=== PATIENT | female | born 1945 | race Caucasian/White ===

== ENCOUNTER 2019-07-23 17:32 | Inpatient (IN) | payer BC ==
[~2019-07-23] VITALS: Ht 167.6 cm; Wt 74.9 kg
[~2019-07-23 17:32] MED LIST: AMIT50TA3 OR; LEVO88TA4 OR; QUIN20TA33 OR; SIMV-8 OR; TRAM-297 OR; [UNRECOGNIZED DRUG - OTHER]
[2019-07-23] MEDS ORDERED: SODIUM CHLORIDE 0.9% 500 ML IVB ONE (17:51)
[2019-07-23 18:42] LABS: Urine Bacteria FEW /hpf (None Seen); Urine Blood TRACE /uL (Negative); Urine Specific Gravity 1.008 (1.001-1.035); Urine WBC 376 /hpf (0 - 5); Urine WBC Clumps PRESENT /hpf (None Seen)
[2019-07-23] MEDS ORDERED: LEVOFLOXACIN 500MG 100 ML IV ONE (18:45)
[2019-07-23] MEDS: SODIUM CHLORIDE 0.9% 1,000 ML IV SCH (19:29)
[2019-07-23] MEDS ORDERED: DEXTROSE (50%) 50ML SYRG IV PRN (19:30)
[2019-07-23] MEDS ORDERED: cefTRIAXone 1GM/50ML D5W 50 ML IV ONE (19:30)
[2019-07-23] MEDS ORDERED: PROMETHAZINE HCL 25 MG/ML 1ML IV PRN (19:30)
[2019-07-23] MEDS ORDERED: CYCLOBENZAPRINE HCL 10 MG TAB PO PRN (19:30)
[2019-07-23] MEDS ORDERED: NITROGLYCERIN 0.4 MG SL TAB SL PRN (19:30)
[2019-07-23] MEDS ORDERED: MORPHINE SULF INJ 2 MG/ML SYRINGE 1ML IV PRN (19:30)
[2019-07-23] MEDS ORDERED: ACETAMINOPHEN 500 MG TAB PO PRN (19:30)
[2019-07-23 19:31] LABS: Basophils # (auto) 0 uL; Basophils % (auto) 0.3 % (0.0-2.0); Eosinophils # (auto) 0.2 uL; Eosinophils % (auto) 1.9 % (0.0-7.0); Hematocrit 29.5 % (36.0-46.0); Hemoglobin 9.7 g/dL (12.2-16.2); Lymphocytes # (auto) 1.4 uL; Lymphocytes % (auto) 14.8 % (10.0-50.0); Mean Corpuscular Hemoglobin 30.1 pg (28.0-32.0); Monocytes # (auto) 0.5 uL; Monocytes % (auto) 5.5 % (0.0-12.0); Neutrophils # (auto) 7.1 uL; Neutrophils % (auto) 77.5 % (37.0-80.0); Platelet Count (auto) 451 10^3/uL (140-450); Red Blood Cells 3.24 10^6/uL (4.0-5.20); Red Cell Distribution Width 14.9 % (11.8-14.3); White Blood Cell 9.2 10^3/uL (4.4-10.8)
[2019-07-23 19:55] LABS: Albumin 2.2 g/dL (3.4-5.0); Anion Gap 8 (5-15); Blood Urea Nitrogen 15 mg/dL (7-18); Calcium 8.6 mg/dL (8.5-10.1); Carbon Dioxide 28 mmol/L (21-32); Chloride 99 mmol/L (98-107); Glucose 83 mg/dL (74-106); Potassium 3.5 mmol/L (3.5-5.1); Sodium 135 mmol/L (136-145)
[2019-07-23 20:01] LABS: Alanine Aminotransferase 8 U/L (13-56); Alkaline Phosphatase 123 U/L (45-117); Aspartate Aminotransferase 12 U/L (15-37); BUN/Creatinine Ratio 27.3; Bilirubin, Total 0.2 mg/dL (0.2-1.0); GFR African American 140 mL/min; GFR Non-African American 116 mL/min; Total Protein 6.1 g/dL (6.4-8.2)
[2019-07-23] MEDS: ENOXAPARIN SOD 40 MG/0.4 ML SYRINGE SC SCH (20:08)
[2019-07-23] MEDS: ACCU-CHEK COMFORT CURVE STRIP VI SCH (20:09)
[2019-07-23 21:47] VITALS: BP 111/64
[2019-07-23] MEDS: GABAPENTIN 300 MG CAP PO SCH (22:08)
[2019-07-23] MEDS: traMADol HCL 50 MG TAB PO PRN (22:09)
[2019-07-24] MEDS: ACCU-CHEK COMFORT CURVE STRIP VI SCH ×6 (00:09→20:18)
[2019-07-24 04:49] VITALS: BP 130/39
[2019-07-24] MEDS: SODIUM CHLORIDE 0.9% 1,000 ML IV SCH ×2 (05:29→15:52)
[2019-07-24] MEDS: traMADol HCL 50 MG TAB PO PRN (06:07)
[2019-07-24] MEDS: GABAPENTIN 300 MG CAP PO SCH ×3 (06:07→22:04)
[2019-07-24] MEDS: LEVOTHYROXINE SODIUM 88 MCG TAB PO SCH (06:57)
[2019-07-24 09:00] VITALS: BP 110/66
[2019-07-24] MEDS: cefTRIAXone 1GM/50ML D5W 50 ML IV SCH (09:20)
[2019-07-24] MEDS ORDERED: HYDROCHLOROTHIAZIDE PO SCH (10:00)
[2019-07-24] MEDS ORDERED: QUINAPRIL PO SCH (10:00)
[2019-07-24 12:37] VITALS: BP 142/66
[2019-07-24] MEDS ORDERED: CRAN600T OR (12:54)
[2019-07-24] MEDS ORDERED: ASCO100076 PO (12:54)
[2019-07-24] MEDS ORDERED: METF500S PO (12:54)
[2019-07-24] MEDS ORDERED: CYCL1TAB18 PO (12:54)
[2019-07-24] MEDS ORDERED: PANT40TA2 PO (12:54)
[2019-07-24] MEDS ORDERED: OMEG1CAP59 PO (12:54)
[2019-07-24] MEDS ORDERED: ZINC220C8 PO (12:54)
[2019-07-24] MEDS ORDERED: [UNRECOGNIZED DRUG - CODE] PO (12:54)
[2019-07-24] MEDS ORDERED: CYAN1TAB14 PO (12:54)
[2019-07-24] MEDS ORDERED: CHOL20007 OR (12:54)
[2019-07-24] MEDS ORDERED: MAGN400C3 PO (12:54)
[2019-07-24] MEDS ORDERED: PERCOT PO (12:54)
[2019-07-24] MEDS ORDERED: OXYCODONE W/ ACETAMINOPHEN 5/325MG TABLET PO PRN (14:30)
[2019-07-24] MEDS: OXYCODONE W/ ACETAMINOPHEN 5/325MG TABLET PO PRN (16:21)
[2019-07-24 17:11] VITALS: BP 120/67
[2019-07-24] MEDS: QUINAPRIL PO SCH (17:25)
[2019-07-24] MEDS: HYDROCHLOROTHIAZIDE 12.5 MG PO SCH (17:25)
[2019-07-24] MEDS: ENOXAPARIN SOD 40 MG/0.4 ML SYRINGE SC SCH (18:23)
[2019-07-24 22:00] VITALS: BP 136/69
[2019-07-24] MEDS: PRAVASTATIN SODIUM 20 MG TAB PO SCH (22:04)
[2019-07-25] MEDS: ACCU-CHEK COMFORT CURVE STRIP VI SCH ×6 (00:08→20:55)
[2019-07-25 05:00] VITALS: BP 147/70
[2019-07-25] MEDS: GABAPENTIN 300 MG CAP PO SCH ×3 (06:16→21:48)
[2019-07-25] MEDS: SODIUM CHLORIDE 0.9% 1,000 ML IV SCH ×3 (06:16→22:11)
[2019-07-25] MEDS: LEVOTHYROXINE SODIUM 88 MCG TAB PO SCH (06:46)
[2019-07-25 09:00] VITALS: BP 116/67
[2019-07-25] MEDS: cefTRIAXone 1GM/50ML D5W 50 ML IV SCH (09:08)
[2019-07-25] MEDS: OXYCODONE W/ ACETAMINOPHEN 5/325MG TABLET PO PRN (11:42)
[2019-07-25 13:21] VITALS: BP 132/85
[2019-07-25 16:53] VITALS: BP 151/62
[2019-07-25] MEDS: QUINAPRIL PO SCH (17:14)
[2019-07-25] MEDS: HYDROCHLOROTHIAZIDE 12.5 MG PO SCH (17:14)
[2019-07-25] MEDS: ENOXAPARIN SOD 40 MG/0.4 ML SYRINGE SC SCH (17:15)
[2019-07-25] MEDS: PRAVASTATIN SODIUM 20 MG TAB PO SCH (21:49)
[2019-07-25 22:00] VITALS: BP 154/75
[2019-07-26] MEDS: OXYCODONE W/ ACETAMINOPHEN 5/325MG TABLET PO PRN (00:22)
[2019-07-26] MEDS: ACCU-CHEK COMFORT CURVE STRIP VI SCH ×4 (00:31→13:04)
[2019-07-26 05:00] VITALS: BP 124/75
[2019-07-26] MEDS: LEVOTHYROXINE SODIUM 88 MCG TAB PO SCH (06:03)
[2019-07-26] MEDS: GABAPENTIN 300 MG CAP PO SCH ×2 (06:03→14:21)
[2019-07-26] MEDS: SODIUM CHLORIDE 0.9% 1,000 ML IV SCH (06:54)
[2019-07-26] MEDS: cefTRIAXone 1GM/50ML D5W 50 ML IV SCH (08:33)
[2019-07-26 09:24] VITALS: BP 175/76
[2019-07-26] MEDS ORDERED: LINEZOLID 600MG TABLET PO ONE (11:30)
[2019-07-26] MEDS ORDERED: LEVOFLOXACIN 500 MG TAB PO ONE (11:30)
[2019-07-26 12:37] VITALS: BP 145/86
[2019-07-26] MEDS ORDERED: LINEZOLID 600MG TABLET PO SCH (22:00)
[2019-07-27] MEDS ORDERED: LEVOFLOXACIN 500 MG TAB PO SCH (10:00)
== END 2019-07-26 15:42 | disposition home health service (06) | DRG 871 ==
LOC: EDBD 17:32 → ER 17:35 → TELE 17:36 → TELE-WESTW 21:28
PROVIDERS: ADMIT Internal Medicine; ATTEND Family Medicine
DX: A41.9 Sepsis, unspecified organism (principal); L89.154 Pressure ulcer of sacral region, stage 4; G93.41 Metabolic encephalopathy; N39.0 Urinary tract infection, site not specified; Z16.21 Resistance to vancomycin; E11.649 Type 2 diabetes mellitus with hypoglycemia without coma; I10 Essential (primary) hypertension; B96.1 Klebsiella pneumoniae [K. pneumoniae] as the cause of diseases classified elsewhere; E86.0 Dehydration; L89.150 Pressure ulcer of sacral region, unstageable; K59.00 Constipation, unspecified; T68.XXXA Hypothermia, initial encounter; Z86.19 Personal history of other infectious and parasitic diseases; Z87.891 Personal history of nicotine dependence; Z90.49 Acquired absence of other specified parts of digestive tract; B95.2 Enterococcus as the cause of diseases classified elsewhere
CPT/HCPCS: 36415; 70450; 71045; 80053; 81001; 82570; 82962; 83036; 83605; 84484; 85025; 87040; 87077; 87081; 87086; 87088; 87186; 87205; 97163; 99291; G0378; J0696; J1956

== ENCOUNTER 2020-10-24 14:19 | Emergency (ER) | payer BC ==
[~2020-10-24] VITALS: Ht 167.6 cm; Wt 81.6 kg
[~2020-10-24 14:19] MED LIST changes: +ASCO100076 PO; +CHOL20007 OR; +CRAN600T OR; +CYAN1TAB14 PO; +CYCL10TA6 PO; +MAGN400C3 PO; +METF500S PO; +OMEG1CAP59 PO; +PANT40TA2 PO; +PERCOT PO; +ZINC220C8 PO; +[UNRECOGNIZED DRUG - CODE] PO
[2020-10-24 14:23] VITALS: BP 136/64
[2020-10-24] MEDS ORDERED: SODIUM CHLORIDE 0.9% 1,000 ML IV ONE ×2 (14:45)
[2020-10-24 15:02] LABS: Basophils # (auto) 0 10 ^3/uL (0-0.2); Basophils % (auto) 0.6 % (0.0-2.0); Eosinophils # (auto) 0.2 10 ^3/uL (0-0.8); Eosinophils % (auto) 3.2 % (0.0-7.0); Hematocrit 32.8 % (36.0-46.0); Hemoglobin 10.9 g/dL (12.2-16.2); Lymphocytes # (auto) 2.2 10 ^3/uL (0.4-5.4); Mean Corpuscular Hemoglobin 28.8 pg (28.0-32.0); Mean Corpuscular Hgb Conc. 33.3 g/dL (32.0-36.0); Mean Corpuscular Volume 86.6 fL (80.0-100.0); Monocytes # (auto) 0.5 10 ^3/uL (0-1.3); Monocytes % (auto) 6.7 % (0.0-12.0); Neutrophils # (auto) 4.6 10 ^3/uL (1.6-8.6); Neutrophils % (auto) 60.5 % (37.0-80.0); Platelet Count (auto) 376 10^3/uL (140-450); Red Blood Cells 3.78 10^6/uL (4.0-5.20); Red Cell Distribution Width 14.2 % (11.8-14.3); White Blood Cell 7.6 10^3/uL (4.4-10.8)
[2020-10-24 15:16] LABS: Albumin 3.2 g/dL (3.4-5.0); Anion Gap 7 (5-15); Blood Urea Nitrogen 16 mg/dL (7-18); Carbon Dioxide 25 mmol/L (21-32); Chloride 99 mmol/L (98-107); Glucose 88 mg/dL (74-106); Potassium 4.3 mmol/L (3.5-5.1); Sodium 131 mmol/L (136-145)
[2020-10-24 15:21] LABS: Alanine Aminotransferase 16 U/L (13-56); Alkaline Phosphatase 85 U/L (45-117); Aspartate Aminotransferase 15 U/L (15-37); BUN/Creatinine Ratio 21.6; Bilirubin, Total 0.2 mg/dL (0.2-1.0); GFR African American 99 mL/min; GFR Non-African American 82 mL/min; Total Protein 7.3 g/dL (6.4-8.2)
== END 2020-10-24 17:53 | disposition left against medical advice (07) ==
LOC: ER 14:19
DX: A41.89 Other specified sepsis (principal); N39.0 Urinary tract infection, site not specified; I10 Essential (primary) hypertension; E11.9 Type 2 diabetes mellitus without complications; Z90.89 Acquired absence of other organs; Z79.899 Other long term (current) drug therapy
CPT/HCPCS: 36415; 71045; 80053; 84484; 85025; 87040

== ENCOUNTER 2024-02-19 11:58 | Inpatient (IN) | payer BC, OTHER ==
[~2024-02-19] VITALS: Ht 167.6 cm; Wt 73.0 kg
[~2024-02-19 11:58] MED LIST changes: +AMIT50TA12 OR; -AMIT50TA3 OR; +CYCL-839 PO; -CYCL10TA6 PO; -METF500S PO; +METF500S3 PO; +QUIN1TAB OR; -QUIN20TA33 OR; -SIMV-8 OR; +SIMV20TA20 OR
[2024-02-19 14:04] LABS: Mean Corpuscular Volume 78.9 fL (80.0-100.0); Monocytes # (auto) 0.6 10 ^3/uL (0-1.3)
[2024-02-19 14:06] LABS: Basophils # (auto) 0.1 10 ^3/uL (0-0.2); Basophils % (auto) 0.7 % (0.0-2.0); Eosinophils # (auto) 0.3 10 ^3/uL (0-0.8); Eosinophils % (auto) 3.6 % (0.0-7.0); Hematocrit 31.9 % (36.0-46.0); Hemoglobin 10.6 g/dL (12.2-16.2); Lymphocytes % (auto) 13.3 % (10.0-50.0); Mean Corpuscular Hemoglobin 26.3 pg (28.0-32.0); Mean Corpuscular Hgb Conc. 33.3 g/dL (32.0-36.0); Monocytes % (auto) 8.6 % (0.0-12.0); Neutrophils # (auto) 5.5 10 ^3/uL (1.6-8.6); Neutrophils % (auto) 73.8 % (37.0-80.0); Platelet Count (auto) 360 10^3/uL (140-450); Red Blood Cells 4.05 10^6/uL (4.0-5.20); White Blood Cell 7.5 10^3/uL (4.4-10.8)
[2024-02-19 14:12] VITALS: PULSE 61; RESP 10; O2SAT 99
[2024-02-19 14:16] LABS: Anion Gap 4 (5-15); Carbon Dioxide 32 mmol/L (20-30); Chloride 100 mmol/L (98-107); Potassium 4.9 mmol/L (3.5-5.1); Sodium 136 mmol/L (136-145)
[2024-02-19 14:18] LABS: Calcium 10.1 mg/dL (8.7-10.4)
[2024-02-19 14:22] LABS: Glucose 117 mg/dL (74-106)
[2024-02-19 14:23] LABS: BUN/Creatinine Ratio 26.6 (10.0-20.0); Blood Urea Nitrogen 17 mg/dL (9-23)
[2024-02-19] MEDS: ONDANSETRON HCL 4 MG/2 ML VIAL IV ONE (17:19)
[2024-02-19] MEDS: MORPHINE SULFATE INJ 2 MG/ml SYRG IV ONE (17:23)
[2024-02-19 18:19] LABS: Urine Bacteria None Seen /hpf (None Seen)
[2024-02-19 18:45] LABS: Urine Blood Negative /uL (Negative); Urine Clarity Clear (Clear); Urine Color Yellow (Yellow); Urine Protein, UAD TRACE (Negative); Urine Specific Gravity 1.019 (1.001-1.035); Urine Urobilinogen Normal (Negative); Urine WBC 2 /hpf (0 - 5); Urine pH 7.5 (5.0-9.0)
[2024-02-19] MEDS: OXYCODONE W/ ACETAMINOPHEN 5/325MG TABLET PO ONE (19:06)
[2024-02-19] MEDS: PIPERACILLIN-TAZO 4.5GM 100 ML IV ONE (19:07)
[2024-02-19 19:50] VITALS: PULSE 62; RESP 12; O2SAT 88
[2024-02-19] MEDS: diphenhdrAMINE HCL 50 MG/1 ML VL IV ONE (20:02)
[2024-02-19] MEDS: methylPREDNISolone SOD SUCC 125 MG/2 ML VL IV ONE (20:02)
[2024-02-19] MEDS: VANCOMYCIN 1GM/200ML 200 ML IV ONE (20:03)
[2024-02-19] MEDS ORDERED: VANCOMYCIN PER PHARMACY 0 MG IV SCH (21:15)
[2024-02-19] MEDS ORDERED: ONDANSETRON HCL 4 MG/2 ML VIAL IV PRN (21:15)
[2024-02-19] MEDS ORDERED: ACETAMINOPHEN 325 MG TAB PO PRN (21:15)
[2024-02-19] MEDS: MORPHINE SULFATE INJ 2 MG/ml SYRG IV PRN (22:39)
[2024-02-20] VITALS (7 sets, daily range): BP systolic 111–136; BP diastolic 40–58; PULSE 57–75; RESP 16–18; TEMP 97.4–98.5; O2SAT 95–99
[2024-02-20] MEDS ORDERED: DEXTROSE (50%) 50ML SYRG IV PRN (02:00)
[2024-02-20] MEDS: PIPERACILLIN-TAZOB 3.375GM 100 ML IV SCH (05:16)
[2024-02-20 06:10] LABS: Basophils # (auto) 0 10 ^3/uL (0-0.2); Basophils % (auto) 0.2 % (0.0-2.0); Eosinophils # (auto) 0 10 ^3/uL (0-0.8); Eosinophils % (auto) 0.1 % (0.0-7.0); Monocytes # (auto) 0 10 ^3/uL (0-1.3); Neutrophils # (auto) 5.2 10 ^3/uL (1.6-8.6); White Blood Cell 5.7 10^3/uL (4.4-10.8)
[2024-02-20 06:17] LABS: Hematocrit 30.3 % (36.0-46.0); Hemoglobin 10.1 g/dL (12.2-16.2); Lymphocytes # (auto) 0.4 10 ^3/uL (0.4-5.4); Lymphocytes % (auto) 7.5 % (10.0-50.0); Mean Corpuscular Hemoglobin 26.6 pg (28.0-32.0); Mean Corpuscular Hgb Conc. 33.5 g/dL (32.0-36.0); Mean Corpuscular Volume 79.5 fL (80.0-100.0); Monocytes % (auto) 0.8 % (0.0-12.0); Neutrophils % (auto) 91.4 % (37.0-80.0); Nucleated Red Blood Cells % 0.1 %; Platelet Count (auto) 294 10^3/uL (140-450); Red Blood Cells 3.81 10^6/uL (4.0-5.20)
[2024-02-20] MEDS: InsuLIN REG 1unit/0.01ml Soln (100units/ml) SC SCH (06:27)
[2024-02-20] MEDS: ACCU-CHEK COMFORT CURVE STRIP VI SCH (07:23)
[2024-02-20] MEDS: PANTOPRAZOLE 40 MG/10 ML VIAL INJ IV SCH (08:36)
[2024-02-20] MEDS: ENOXAPARIN SOD 40 MG/0.4 ML SYRINGE SC SCH (08:37)
[2024-02-20] MEDS: VANCOMYCIN 1GM/200ML 200 ML IV SCH (08:37)
[2024-02-20 12:21] LABS: Chloride 102 mmol/L (98-107); Potassium 4.6 mmol/L (3.5-5.1); Sodium 135 mmol/L (136-145)
[2024-02-20 12:22] LABS: Anion Gap 5 (5-15); Carbon Dioxide 28 mmol/L (20-30)
[2024-02-20 12:23] LABS: Calcium 9.3 mg/dL (8.7-10.4)
[2024-02-20 12:27] LABS: BUN/Creatinine Ratio 21.5 (10.0-20.0); Blood Urea Nitrogen 20 mg/dL (9-23); Glucose 277 mg/dL (74-106)
[2024-02-20] MEDS ORDERED: fentaNYL CITRATE 100 MCG/2 ML VL ONE (12:32)
[2024-02-20] MEDS ORDERED: PROPOFOL 10 MG/ML 20 ML IV ONE (12:35)
[2024-02-20] MEDS: LIDOCAINE W/ EPINEPHRINE 1% 20ML VIAL ONE (13:15)
[2024-02-20 14:38] LABS: INR 1.28 (0.9-1.15); Partial Thromboplastin Time 39.9 SEC (24.5-34.5); Prothrombin Time 13.3 sec (9.3-11.8)
[2024-02-21] VITALS (7 sets, daily range): BP systolic 107–156; BP diastolic 45–86; PULSE 63–81; RESP 16–20; TEMP 97.8–98.9; O2SAT 93–100
[2024-02-21] MEDS: HYDROcodone-ACET 5/325MG TAB PO PRN (17:24)
[2024-02-22] VITALS (7 sets, daily range): BP systolic 123–166; BP diastolic 61–110; PULSE 62–73; RESP 18–20; TEMP 97.1–98.6; O2SAT 93–100
[2024-02-22 06:26] LABS: Basophils # (auto) 0 10 ^3/uL (0-0.2); Eosinophils # (auto) 0.2 10 ^3/uL (0-0.8); Hemoglobin 9.7 g/dL (12.2-16.2); Monocytes # (auto) 0.5 10 ^3/uL (0-1.3); Neutrophils # (auto) 3.1 10 ^3/uL (1.6-8.6)
[2024-02-22 06:29] LABS: Eosinophils % (auto) 3.8 % (0.0-7.0); Hematocrit 29.1 % (36.0-46.0); Lymphocytes # (auto) 1.2 10 ^3/uL (0.4-5.4); Lymphocytes % (auto) 24.7 % (10.0-50.0); Mean Corpuscular Hemoglobin 26.5 pg (28.0-32.0); Mean Corpuscular Hgb Conc. 33.5 g/dL (32.0-36.0); Monocytes % (auto) 9.1 % (0.0-12.0); Neutrophils % (auto) 61.4 % (37.0-80.0); Nucleated Red Blood Cells % 0.1 %; Platelet Count (auto) 315 10^3/uL (140-450); Red Blood Cells 3.68 10^6/uL (4.0-5.20); Red Cell Distribution Width 17.3 % (11.8-14.3)
[2024-02-22 06:54] LABS: Calcium 9.5 mg/dL (8.7-10.4); Chloride 107 mmol/L (98-107); Potassium 4.7 mmol/L (3.5-5.1); Sodium 143 mmol/L (136-145)
[2024-02-22 06:55] LABS: Anion Gap 11 (5-15); Carbon Dioxide 25 mmol/L (20-30)
[2024-02-22 07:00] LABS: Blood Urea Nitrogen 17 mg/dL (9-23); Glucose 113 mg/dL (74-106)
[2024-02-22] MEDS: VANCOMYCIN 1GM/200ML 200 ML IV SCH (17:00)
[2024-02-23] VITALS (7 sets, daily range): BP systolic 112–171; BP diastolic 54–73; PULSE 58–84; RESP 16–22; TEMP 98–98.3; O2SAT 90–100
[2024-02-23] MEDS ORDERED: VANCOMYCIN HCL 1000 MG VL ONE (07:04)
[2024-02-24] VITALS (7 sets, daily range): BP systolic 144–164; BP diastolic 60–85; PULSE 61–69; RESP 16–18; TEMP 98.1–98.5; O2SAT 93–99
[2024-02-24 07:26] LABS: Chloride 107 mmol/L (98-107); Potassium 3.3 mmol/L (3.5-5.1); Sodium 140 mmol/L (136-145)
[2024-02-24 07:27] LABS: Anion Gap 5 (5-15); Carbon Dioxide 28 mmol/L (20-30)
[2024-02-24 07:32] LABS: BUN/Creatinine Ratio 31.6 (10.0-20.0); Blood Urea Nitrogen 18 mg/dL (9-23); Glucose 131 mg/dL (74-106)
[2024-02-24 11:09] LABS: INR 1.24 (0.9-1.15); Prothrombin Time 12.9 sec (9.3-11.8)
[2024-02-24] MEDS ORDERED: LIDOCAINE 1% (LOCAL ANESTH.) PF 5ml SDV ID ONE (14:30)
[2024-02-24] MEDS: hydrALAZINE HCL 20 MG/ML VL IV ONE (16:20)
[2024-02-24] MEDS ORDERED: SODIUM CHLOR 0.9% PF (SALINE LOCK) 10ML VIAL/SYR IV SCH (22:00)
== END 2024-02-24 17:10 | disposition home health service (06) | DRG 622 ==
LOC: ER 11:58 → OVERFLOW 21:22 → CENTRAL 21:22 → UNDODEPER 02-20 00:28 → CENTRAL 02-23 12:30
PROVIDERS: ADMIT Nurse Practitioner Family; ATTEND Nurse Practitioner Family
PROC: 0KBN0ZZ Excision of Right Hip Muscle, Open Approach (ICD-10-PCS; 2024-02-20)
PROC: 0KBP0ZZ Excision of Left Hip Muscle, Open Approach (ICD-10-PCS; principal; 2024-02-20 12:52)
PROC: 02HV33Z Insertion of Infusion Device into Superior Vena Cava, Percutaneous Approach (ICD-10-PCS; 2024-02-24)
PROC: B548ZZA Ultrasonography of Superior Vena Cava, Guidance (ICD-10-PCS; 2024-02-24)
DX: E11.69 Type 2 diabetes mellitus with other specified complication (principal); L89.154 Pressure ulcer of sacral region, stage 4; G82.20 Paraplegia, unspecified; N39.0 Urinary tract infection, site not specified; M86.18 Other acute osteomyelitis, other site; I10 Essential (primary) hypertension; J44.9 Chronic obstructive pulmonary disease, unspecified; X58.XXXA Exposure to other specified factors, initial encounter; E03.9 Hypothyroidism, unspecified; E78.5 Hyperlipidemia, unspecified; Z74.01 Bed confinement status; Z79.899 Other long term (current) drug therapy; Z79.891 Long term (current) use of opiate analgesic; Z82.49 Family history of ischemic heart disease and other diseases of the circulatory system; Z83.3 Family history of diabetes mellitus; Y93.89 Activity, other specified; Y92.89 Other specified places as the place of occurrence of the external cause; Y99.8 Other external cause status; Z79.84 Long term (current) use of oral hypoglycemic drugs
CPT/HCPCS: 36415; 36569; 72192; 80048; 80202; 81001; 82565; 82962; 83036; 83605; 83880; 84484; 85025; 85610; 85730; 86850; 86900; 86901; 87040; 87077; 87086; 87186; 87205; G0378; J1815; J2405; J2470; J2543; J2704

== ENCOUNTER 2024-10-17 17:28 | Inpatient (IN) | payer OTHER ==
[~2024-10-17] VITALS: Ht 167.6 cm; Wt 73.0 kg
[2024-10-17 18:00] VITALS: PULSE 75; RESP 12; O2SAT 100
[2024-10-17 18:00] LABS: Basophils # (auto) 0 10 ^3/uL (0-0.2); Eosinophils # (auto) 0 10 ^3/uL (0-0.8); Hemoglobin 9.4 g/dL (12.2-16.2); Lymphocytes # (auto) 0.5 10 ^3/uL (0.4-5.4); Lymphocytes % (auto) 3.8 % (10.0-50.0); Monocytes # (auto) 0.5 10 ^3/uL (0-1.3); Neutrophils % (auto) 92.1 % (37.0-80.0)
[2024-10-17] MEDS: SODIUM CHLORIDE 0.9% 1,000 ML IV ONE ×3 (18:00→21:45)
[2024-10-17] MEDS ORDERED: VANCOMYCIN PER PHARMACY 0 MG IV SCH ×2 (18:00→21:45)
[2024-10-17 18:03] LABS: Basophils % (auto) 0.2 % (0.0-2.0); Hematocrit 29.4 % (36.0-46.0); Mean Corpuscular Hemoglobin 26.1 pg (28.0-32.0); Mean Corpuscular Hgb Conc. 32.1 g/dL (32.0-36.0); Mean Corpuscular Volume 81.4 fL (80.0-100.0); Monocytes % (auto) 3.9 % (0.0-12.0); Neutrophils # (auto) 11.2 10 ^3/uL (1.6-8.6); Platelet Count (auto) 164 10^3/uL (140-450); Red Blood Cells 3.62 10^6/uL (4.0-5.20); Red Cell Distribution Width 17.6 % (11.8-14.3); White Blood Cell 12.2 10^3/uL (4.4-10.8)
[2024-10-17 18:14] LABS: Anion Gap 10 (5-15); BUN/Creatinine Ratio 34.3 (10.0-20.0); Calcium 8.8 mg/dL (8.7-10.4); Carbon Dioxide 23 mmol/L (20-31); Chloride 105 mmol/L (98-107); Potassium 3.7 mmol/L (3.5-5.1); Sodium 138 mmol/L (136-145)
[2024-10-17 18:15] LABS: Bilirubin, Total 0.3 mg/dL (0.2-1.0)
[2024-10-17] MEDS: PIPERACILLIN-TAZO 4.5GM 100 ML IV ONE (18:15)
[2024-10-17 18:37] LABS: Alanine Aminotransferase 57 U/L (7-40); Albumin 2.9 g/dL (3.2-4.8); Alkaline Phosphatase 162 U/L (46-116); Aspartate Aminotransferase 102 U/L (13-40); Blood Urea Nitrogen 34 mg/dL (9-23); Glucose 180 mg/dL (74-106); Total Protein 5.2 g/dL (5.7-8.2)
--- NOTE | 2024-10-17 19:18 | ED.PDOC ---
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 Per EMS, patient's b lood pressure was in the 70s systolic. They administered a 500 normal saline IV bolus transient improvement of her blood pressure, however the patient subsequently became more hypotensive, so 0.01 mg of epinephrine was administered IV. On arrival to the ER, patient's blood pressure was 82/40. The patient was oriented times 0 and unable to provide any additional information. Chief Complaint: ALOC Time Seen by MD: 17:29 Primary Care Provider: Ry Allergies: Coded Allergies: Gentamicin (Verified Adverse Reaction, Mild, 02/24/24) hearing Home Meds Reported Medications Oxycodone W/ Acetaminophen (Percocet 5/325MG) 1 Tab Tb, 1 TAB PO Q4HPRN PRN for PAIN SCALE 1 THRU 6, #60 TAB 07/24/19 Zinc Sulfate (Zinc Sulfate) 220 Mg Cap, 50 MG PO DAILY for 30 Days, MG 07/24/19 Ascorbic Acid (Vitamin C) 1,000 Mg Tab, 1000 MG PO, TAB 20 Cyanocobalamin (B12) 1,000 Mcg Tab, 500 MCG PO DAILY, TAB 20 Cranberry Extract (CRANBERRY) 600 Mg Tab, 600 MG OR DAILY, TAB 20 Cholecalciferol (VITAMIN D3) 2,000 Unit Tab, 1000 UNIT OR, TAB 20 [place]-3 Fatty Acids ([place] 3 500 500 mg) 1 Cap Cap, 2 CAP PO DAILY, CAP 20 Biotin (Vitamin H) (Biotin Maximum) 10,000 Mcg Tab, 65155 MCG PO DAILY, TAB 20 Magnesium Oxide (Mg Supplement (MAGNESIUM) 400 Mg Cap, 400 MG PO, CAP 20 Pantoprazole Sodium Sesquihydr (Protonix) 40 Mg Tab, 40 MG PO DAILY, #30 TAB 07/24/19 Cyclobenzaprine Hcl (Cyclobenzaprine Hcl) 10 Mg Tab, 10 MG PO TID, TAB 07/24/19 Metformin HCl (Metformin Hydrochloride) 500 Mg/5 Ml Nilda, 500 MG PO BID, ML 07/24/19 Tramadol Hcl (Ultram) 50 Mg Tab, 50 MG OR Q6HR 02/19/10 Simvastatin (Simvastatin) 20 Mg Tab, 20 MG OR DAILY 02/19/10 Amitriptyline Hcl (Amitriptyline Hcl) 50 Mg Tab, 50 MG OR HS 02/19/10 Levothyroxine Sodium (Levothyroxine Sodium) 88 Mcg Tab, 88 MCG OR DAILY 02/19/10 Quinapril-Hydrochlorothiazide (Quinapril/Hydrochlorothia) 1 Tab Tab, 2 TAB OR DAILY 02/19/10 [Aleye] No Conflict Check 02/18/10 Mode of Arrival: EMS Past Medical History PAST MEDICAL HISTORY: DM, HTN Past Medical History (Other): Paralyzed from the waist down, bed-bound Surgical History: Tonsillectomy Surgical History (Other): Suprapubic catheter 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: Unknown Family History Family History: Unobtainable Social History Smoker: Unknown Alcohol: Unknown Drugs: Unknown Lives In: Home Unable to Obtain due to: Altered Mental Status (Comprehensive systems review unobtainable due to the patient's current altered mental status) Physical Exam General Appearance: No Apparent Distress, Other (Somnolent, arousable to tactile stimulus) HEENT: PERRL/EOMI, Other (Dry mucous membranes) Neck: Full Range of Motion, Non-Tender, Normal Inspection, Supple Respiratory: Decreased Breath Sounds, No Accessory Muscle Use, No Respiratory Distress Cardiovascular: No Edema, No JVD, Regular Rate/Rhythm Breast Exam: Deferred Gastrointestinal: Non Tender, Soft, Other (Suprapubic catheter in place with cloudy urine in the catheter and collection bag) Genitalia: Deferred Pelvic: Deferred Rectal: Deferred Extremities: Normal inspection, Normal range of motion, Non-tender, No pedal edema Neurologic: Other (Somnolent, arousable to tactile stimulus, oriented times 0. Does not cooperate with neuro exam. Moves bilateral upper extremities. Does not move bilateral lower extremities.) Cerebellar Function: NOT DONE Reflexes: NOT DONE Skin: Dry, Pallor, Warm Lymphatic: NOT DONE Was a procedure done? 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 of heat seal operator: Attending Physician Indication: Hypotension, CVP monitoring, Volume resuscitation, Suspected infection (Sepsis suspected) Room prepared for procedure: Yes Boiler Operators Supervisor performed hand hygien: Yes Maximal sterile barrier precau: Sterile gown, Sterlie gloves, Large sterlie drape Skin Preparation: Chlorhexidine gluconate Skin preparation completely dr: Yes Insertion site: Right, Internal jugular Central line catheter type: [id number] dialysis Number of lumens: 3 Central line exchanged over a: Yes Antiseptic ointment applied to: No Post Assessment: Chest X-Ray, Proper placement, No Pneumothorax Informed consent obtained: No (Procedure was emergent. Patient has altered mental status.) Risks/benefits/alt described: No EKG EKG : Comments Sinus rhythm, rate 76, normal intervals, normal axis, normal QRS, nonspecific T change Differential Dx Considerations may include: Sepsis, dehydration/hypovolemia, arrhythmia, IN, CVA, CHF, pneumonia, UTI, electrolyte imbalance, renal failure, among others X-Ray, Labs, Meds, VS Vital Signs Date Time Temp Pulse Resp B/P (MAP) Pulse Ox O2 Delivery O2 Flow Rate FiO2 10/17/24 20:00 72 10/17/24 19:00 73 12 104/47 (66) 100 10/17/24 18:30 74 12 92/42 (59) 100 10/17/24 18:02 75 10/17/24 18:00 75 12 100 Nasal Cannula* 2 28 10/17/24 17:56 75 12 84/40 (55) 100 10/17/24 17:37 98.9 78 20 92/55 (67) 96 98.9 10/17/24 17:33 76 Lab Test 10/17/24 20:33 10/17/24 20:05 10/17/24 20:04 10/17/24 19:29 Range/Units Urine Color Yellow Yellow Urine Clarity Ex.turbid Clear Urine pH 5.5 5.0-9.0 Urine Specific [place] 1.023 1.001-1.035 Urine Protein 1+ H Negative Urine Ketones Negative Negative Urine Blood 1+ H Negative /uL Urine Nitrite 2+ H Negative Urine Bilirubin Negative Negative Urine Urobilinogen Normal Negative mg/dL Urine Leukocyte Esterase 3+ Negative /uL Urine RBC 49 0 - 4 /hpf Urine WBC Clumps Present None Seen /hpf Urine Microscopic WBC 137 H 0-5 /HPF Urine Squamous Epithelial Cells None seen <5 /hpf Urine Amorphous Crystals Few None Seen /hpf Urine Bacteria Few H None Seen /hpf Urine Mucus Few None Seen Urine Glucose Normal Normal mg/dL POC Glucose 203 H 70-106 mg/dl Lactic Acid Level 3.6 *H 0.4-2.0 mmol/L Troponin I High Sensitivity 110 *H </=34 ng/L Test 10/17/24 17:41 Range/Units White Blood Count 12.2 H 4.4-10.8 10^3/uL Red Blood Count 3.62 L 4.0-5.20 10^6/uL Hemoglobin 9.4 L 12.2-16.2 g/dL Hematocrit 29.4 L 36.0-46.0 % Mean Corpuscular Volume 81.4 80.0-100.0 fL Mean Corpuscular Hemoglobin 26.1 L 28.0-32.0 pg Mean Corpuscular Hemoglobin Concent 32.1 32.0-36.0 g/dL Red Cell Distribution Width 17.6 H 11.8-14.3 % Platelet Count 164 140-450 10^3/uL Mean Platelet Volume 9.4 6.9-10.8 fL Neutrophils (%) (Auto) 92.1 H 37.0-80.0 % Lymphocytes (%) (Auto) 3.8 L 10.0-50.0 % Monocytes (%) (Auto) 3.9 0.0-12.0 % Eosinophils (%) (Auto) 0.0 0.0-7.0 % Basophils (%) (Auto) 0.2 0.0-2.0 % Neutrophils # (Auto) 11.2 H 1.6-8.6 10 ^3/uL Lymphocytes # (Auto) 0.5 0.4-5.4 10 ^3/uL Monocytes # (Auto) 0.5 0-1.3 10 ^3/uL Eosinophils # (Auto) 0 0-0.8 10 ^3/uL Basophils # (Auto) 0 0-0.2 10 ^3/uL Nucleated Red Blood Cells 0.0 % Sodium Level 138 136-145 mmol/L Potassium Level 3.7 3.5-5.1 mmol/L Chloride Level 105 98-107 mmol/L Carbon Dioxide Level 23 20-31 mmol/L Anion Gap 10 5-15 Blood Urea Nitrogen 34 H 9-23 mg/dL Creatinine 0.99 0.550-1.02 mg/dL Glomerular Filtration Rate Calc 59 >90 mL/min BUN/Creatinine Ratio 34.3 H 10.0-20.0 Serum Glucose 180 H 74-106 mg/dL Lactic Acid Level 4.0 *H 0.4-2.0 mmol/L Calcium Level 8.8 8.7-10.4 mg/dL Total Bilirubin 0.3 0.2-1.0 mg/dL Aspartate Amino Transferase (AST) 102 H 13-40 U/L Alanine Aminotransferase (ALT) 57 H 7-40 U/L Alkaline Phosphatase 162 H 46-116 U/L Troponin I High Sensitivity 92 *H </=34 ng/L B-Type Natriuretic Peptide 179.21 0-100 pg/mL Total Protein 5.2 L 5.7-8.2 g/dL Albumin 2.9 L 3.2-4.8 g/dL Plasma/Serum Blood Alcohol < 3.0 <10 mg/dL Current Medications Medications (Trade) Dose Ordered Sig/Daniel Route Start Time Stop Time Status Last Admin Sodium Chloride 1,000 ml @ 1,000 mls/hr Q1H ONCE IV 10/17/24 18:00 10/17/24 18:59 DC 10/17/24 18:00 Piperacillin Sod/ Tazobactam Sod 100 ml @ 100 mls/hr ONCE ONCE IV 10/17/24 18:00 10/17/24 18:59 DC 10/17/24 18:15 Vancomycin HCl 250 ml @ 200 mls/hr ONCE ONCE IV 10/17/24 18:15 10/17/24 19:29 DC 10/17/24 19:56 Aspirin 325 mg ONCE ONCE PO 10/17/24 19:15 10/17/24 19:51 DC 10/17/24 20:36 Sodium Chloride 1,000 ml @ 1,000 mls/hr Q1H ONCE IV 10/17/24 20:00 10/17/24 20:59 DC 10/17/24 20:00 PROCEDURE(s): HWOCT - HEAD WITHOUT CONTRAST REASON: aloc ORDER NUMBER(s): [id number], ACCESSION NUMBER(s): [id number] CT HEAD WITHOUT CONTRAST INDICATION: aloc COMPARISON: HEAD WITHOUT CONTRAST on DOS: 07/23/19 TECHNIQUE: CT of the head without intravenous contrast. RADIATION DOSE: CTDIvol: 54.4 mGy, DLP: 1803.84 mGy*cm FINDINGS: There is no evidence of intracranial hemorrhage, infarct, extra-axial collection, mass effect, midline shift, herniation or hydrocephalus. The ventricles, sulci and cisterns are normal. The oscar-white differentiation is normal. Visualized paranasal sinuses and mastoid air cells are clear. Soft tiss ues and osseous structures are unremarkable. IMPRESSION: No intracranial abnormality identified. EDURE(s): CXRP - CHEST PORTABLE REASON: hypotension ORDER NUMBER(s): [id number], ACCESSION NUMBER(s): [id number] CHEST RADIOGRAPH Indication: hypotension Technique: Single frontal view of the chest was obtained COMPARISON: CHEST PORTABLE on DOS: 10/24/20 FINDINGS: Lines and Tubes: Right IJ central venous catheter with its tip projecting over cavoatrial junction. Lungs: Clear. Pleura: No effusion. No pneumothorax. Cardiomediastinal contours: Unremarkable Bones: Thoracolumbar spinal instrumentation again noted. IMPRESSION: No abnormality demonstrated. X-Ray, Labs, Meds, VS Comment 78-year-old female with a history of hypertension, diabetes, dyslipidemia, thyroid disease and paralysis from the waist down with indwelling suprapubic catheter brought in by EMS from home for evaluation of hypotension and altered mental status for the past 3 days. Also noted is a deep decubitus ulcer on the patient's sacral area. Vitals Remarkable for initial BP 86 over 40 Exam remarkable for orientation times 0, moves bilateral upper extremities, bilateral lower extremity paralysis, unstageable sacral wound Rhythm strip independently interpreted by me: Sinus rhythm, rate 76, no ectopy. CT head IMPRESSION: No intracranial abnormality identified. Chest x-ray IMPRESSION: No abnormality demonstrated. CT pelvis result pending CBC remarkable for WBC 12.2, CMP remarkable for BUN 34, AST 102, ALT 57, alkaline phos 162, lactic for 0.0, troponin 92, BNP 179.21, UA pending Patient treated with the following in the ED: 2 L 0.9 normal saline IV bolus, Zosyn 4.5 g IV, vancomycin IV per pharmacy, aspirin 325mg po A right internal jugular central venous catheter was inserted for volume resuscitation, IV antibiotics and pressors as needed Please see procedure note for details On re-evaluation, patient's blood pressure is 102/47. She is more alert and asking for something to eat. She denies any chest pain. Other vitals were stable. Plan is to admit the patient for IV antibiotics, blood pressure support, and cardiology evaluation Case discussed with MENDY Javier, who will admit the patient. Time of 1ST Reevaluation: 19:16 Reevaluation 1ST: Improved Patient Education/Counseling: Diagnosis, Treatment, Need For Follow Up Family Education/Counseling: Diagnosis, Treatment, Need For Follow Up Sepsis Sepsis Reasesment Focused Exam Sepsis focused exam: focus exam completed (1710 blood pressure 92/55, other vitals stable. Somnolent, arousable, capillary refill less than 2 seconds), time: (1710) Departure 1 Departure Time of Disposition: 19:16 Impression: Primary Impression: Metabolic encephalopathy Additional Impressions: Sepsis Qualified Codes: A41.9 - Sepsis, unspecified organism UTI (urinary tract infection) Non-ST elevation (NSTEMI) myocardial infarction Disposition: ADMITTED INPATIENT Admit to: [facility] Condition: Guarded Critical Care Note Critical Care Time?: Yes (45 min-critical care time only) Critical care comment: Critical care time including multiple bedside re-evaluations, review of lab and imaging studies, and discussion of the case with the admitting provider. Patient is high risk for neurologic, hemodynamic and/or metabolic decompensation. Stability Stability form required: No Heart Score Heart Score: Heart Score Response (Comments) Value History N/A 0 EKG N/A 0 Age N/A 0 Risk Factors N/A 0 Troponin N/A 0 Total 0 CH[place] GRANGER MD October 17, 2024 19:18
[2024-10-17 19:30] VITALS: RESP 13; O2SAT 100
[2024-10-17] MEDS: VANCOMYCIN 1.25GM/250ML 250 ML IV ONE (19:56)
--- NOTE | 2024-10-17 20:00 | DVH ---
CHEST RADIOGRAPH Indication: hypotension Technique: Single frontal view of the chest was obtained COMPARISON: CHEST PORTABLE on DOS: 10/24/20 FINDINGS: Lines and Tubes: Right IJ central venous catheter with its tip projecting over cavoatrial junction. Lungs: Clear. Pleura: No effusion. No pneumothorax. Cardiomediastinal contours: Unremarkable Bones: Thoracolumbar spinal instrumentation again noted. IMPRESSION: No abnormality demonstrated.
[2024-10-17] MEDS: ASPirin 325 MG TAB PO ONE (20:36)
[2024-10-17 20:49] LABS: Urine Amorphous Crystal FEW /hpf (None Seen); Urine Bacteria FEW /hpf (None Seen); Urine Blood 1+ /uL (Negative); Urine Clarity Ex.Turbid (Clear); Urine Color Yellow (Yellow); Urine Mucus FEW (None Seen); Urine Protein, UAD 1+ (Negative); Urine Specific Gravity 1.023 (1.001-1.035); Urine Squamous Epithelial Cell None Seen /hpf (<5); Urine Urobilinogen Normal (Negative); Urine WBC 137 /HPF (0-5); Urine WBC Clumps PRESENT /hpf (None Seen); Urine pH 5.5 (5.0-9.0)
--- NOTE | 2024-10-17 21:27 | DVH ---
CT HEAD WITHOUT CONTRAST INDICATION: aloc COMPARISON: HEAD WITHOUT CONTRAST on DOS: 07/23/19 TECHNIQUE: CT of the head without intravenous contrast. RADIATION DOSE: CTDIvol: 54.4 mGy, DLP: 1803.84 mGy*cm FINDINGS: There is no evidence of intracranial hemorrhage, infarct, extra-axial collection, mass effect, midli ne shift, herniation or hydrocephalus. The ventricles, sulci and cisterns are normal. The oscar-white differentiation is normal. Visualized paranasal sinuses and mastoid air cells are clear. Soft tissues and osseous structures are unremarkable. IMPRESSION: No intracranial abnormality identified.
[2024-10-17] MEDS ORDERED: ONDANSETRON HCL 4 MG/2 ML VIAL IV PRN (21:45)
[2024-10-17] MEDS ORDERED: MORPHINE SULFATE INJ 2 MG/ml SYRG IV PRN (21:45)
[2024-10-17] MEDS ORDERED: NITROGLYCERIN 0.4 MG SL TAB SL PRN (21:45)
[2024-10-17] MEDS ORDERED: DEXTROSE (50%) 50ML SYRG IV PRN (21:45)
--- NOTE | 2024-10-17 22:06 | DVH ---
Exam: CT PELVIS WO CONTRAST History: infected sacral wound Comparison Study: CT PELVIS WO CONTRAST on DOS: 02/19/24 Technique: Multidetector CT of the pelvis was performed from iliac crests to pubic symphysis after th e administration of intravenous contrast was administered during this examination. Portal venous imag ing was obtained. Axial, coronal and sagittal multiplanar reformats were performed by the technologis t on a separate workstation. Radiation Dose : CT Dose: CTDI volume is 29.02 mGy. Dose-length product is 1803.84 mGy*cm Findings: Visualized bowel: No bowel wall thickening or dilatation. Ascites: Absent Lymphadenopathy: No pelvic or mesenteric lymphadenopathy. Vasculature: The visualized abdominal aorta is normal in size and caliber. Abdominal and pelvic vesse ls demonstrate normal enhancement. Pelvic Organs: Postop changes are noted on the sacrum partial removal of the sacrum. Above the acetab ulum is partially calcified soft tissue mass measuring 8.8 x 5.9 cm. There are no previous studies f or comparison. Musculoskeletal: No acute osseous abnormality. Pedicle screws and rods place noted at L3-L4 and L5. No further imaging cephalically has been obtained The superior extent of the screws and rods are not visualized on this study. The right hip shows chronic dislocation and surgical removal of the right femoral head. Bladder: Martinez catheter in the bladder Soft tissues: Partially calcified soft tissue mass adjacent to the left iliac bone. Can not exclude i nfection versus neoplasm. There is some thickening of the subcutaneous tissues posterior to the exten ding to the surfaces skin measures 6 3 cm in transverse dimension and 2 cm thickness with a possible small skin ulceration. IMPRESSION: 1. No prior studies for comparison. 2. Surgical removal of portions of the sacrum are noted. 3. There is thickening of the subcutaneous tissues over the tip of the sacrum with no air in the subc utaneous tissues. There may be a small skin ulceration or old healed scar. 4. Surgical removal of the right femoral head is noted with chronic right hip dislocation. 5. There is a partially calcified soft tissue mass partially eroding left iliac and extending into th e subcutaneous tissues measuring 8-9 cm front to back 5-6 cm in thickness. This may represent infecti on such as osteomyelitis. Can not exclude neoplasm. All CT scans at this medical facility are performed using dose modulation techniques as appropriate t o a performed exam including the following: Automated exposure control was utilized; adjustment of th e MA and/or KV according to patient size; and use of iterative reconstruction technique. HS:Y
[2024-10-17 22:34] LABS: INR 1.39 (0.9-1.15); Prothrombin Time 14.3 sec (9.3-11.8)
[2024-10-17] MEDS: ACCU-CHEK COMFORT CURVE STRIP VI SCH (23:24)
[2024-10-17] MEDS: InsuLIN REG 1unit/0.01ml Soln (100units/ml) SC SCH (23:38)
[2024-10-17] MEDS: ATORVASTATIN 20 MG TAB PO SCH (23:39)
--- NOTE | 2024-10-18 01:35 | DVHHP2 ---
Admitting Diagnosis: Urosepsis, Elevated troponin, metabolic encephalopathy History of Present Illness History Source: Patient Exam Limitations: No limitations HPI Mrs. 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 Patient is alert and oriented x4 , patient reports she lives alone and has two caregivers one in am and the other pm for ADL's , reports she gets around in a wheelchair. Patient denies chest pain, dyspnea, back pain, headaches, blurry vision, dizziness. Patient admitted for further evaluation. Home Meds Reported Medications Oxycodone W/ Acetaminophen (Percocet 5/325MG) 1 Tab Tb, 1 TAB PO Q4HPRN PRN for PAIN SCALE 1 THRU 6, #60 TAB 07/24/19 Zinc Sulfate (Zinc Sulfate) 220 Mg Cap, 50 MG PO DAILY for 30 Days, MG 07/24/19 Ascorbic Acid (Vitamin C) 1,000 Mg Tab, 1000 MG PO, TAB 20 Cyanocobalamin (B12) 1,000 Mcg Tab, 500 MCG PO DAILY, TAB 20 Cranberry Extract (CRANBERRY) 600 Mg Tab, 600 MG OR DAILY, TAB 20 Cholecalciferol (VITAMIN D3) 2,000 Unit Tab, 1000 UNIT OR, TAB 20 [place]-3 Fatty Acids ([place] 3 500 500 mg) 1 Cap Cap, 2 CAP PO DAILY, CAP 20 Biotin (Vitamin H) (Biotin Maximum) 10,000 Mcg Tab, 16694 MCG PO DAILY, TAB 1520 Magnesium Oxide (Mg Supplement (MAGNESIUM) 400 Mg Cap, 400 MG PO, CAP 1520 Pantoprazole Sodium Sesquihydr (Protonix) 40 Mg Tab, 40 MG PO DAILY, #30 TAB 20 Cyclobenzaprine Hcl (Cyclobenzaprine Hcl) 10 Mg Tab, 10 MG PO TID, TAB 20 Metformin HCl (Metformin Hydrochloride) 500 Mg/5 Ml Nilda, 500 MG PO BID, ML 20 Tramadol Hcl (Ultram) 50 Mg Tab, 50 MG OR Q6HR 02/19/10 Simvastatin (Simvastatin) 20 Mg Tab, 20 MG OR DAILY 02/19/10 Amitriptyline Hcl (Amitriptyline Hcl) 50 Mg Tab, 50 MG OR HS 02/19/10 Levothyroxine Sodium (Levothyroxine Sodium) 88 Mcg Tab, 88 MCG OR DAILY 02/19/10 Quinapril-Hydrochlorothiazide (Quinapril/Hydrochlorothia) 1 Tab Tab, 2 TAB OR DAILY 02/19/10 [Alekevin] No Conflict Check 02/18/10 Past Medical History Cardiac: HTN Pulmonary: COPD Central Nervous System: No pertinent Hx GI: No pertinent Hx Hemotology/Oncology: No pertinent Hx Hepatobiliary: No pertinent Hx Psychiatric: No pertinent Hx Musculoskeletal: No pertinent Hx Rheumotologic: No pertinent Hx Infectious Disease: No peritnent Hx ENT: No pertinent Hx Renal/: No pertinent Hx Endocrine: Hypothyroidism, NIDDM Dermatology: No pertinent Hx Others Paraplegia , Suprapubic catheter Patient Family History: Diabetes mellitus G8 MOTHER FH: myocardial infarction G8 MOTHER G8 FATHER Smoker: No Hx (Negative) Alocohol: None Drugs: None Lives with: Alone (caregivers ) Domestic Violence: Neg Review of Systems Constitutional: Chills Ears, Nose, & Throat: No symptom reported Eyes: No symptom reported Pulmonary/Respiratory: No symptom reported Cardiovascular: No symptom reported Gastrointestinal: No symptom reported Genitourinary: No symptom reported Musculoskeletal: No symptom reported Skin: No symptom reported Psychiatric: No symptom reported Endocrine: No symptom reported Hemotologic/Lymphatic: No symptom reported H&P Exam Vital Signs Vital Signs Date Time Temp Pulse Resp B/P (MAP) Pulse Ox O2 Delivery O2 Flow Rate FiO2 10/18/24 00:00 62 10/17/24 22:00 9 103/50 (67) 100 10/17/24 20:00 97.7 97.7 10/17/24 18:00 Nasal Cannula* 2 28 General Appeara: Well developed, Well nourished, Normal Appearance Head Exam: Normal inspection Neck Exam: Normal inspection, Non-tender, Normal alignment Eye Exam: bilateral eye Normal inspection, bilateral eye PERRL, bilateral eye EOMI Ear Exam: bilateral ear Auricle normal, bilateral ear Canal normal Nasal Exam: Normal inspection Mouth: Normal Inspection Pulmonary/Respiratory: Normal inspection, Normal breath sounds, Chest non- tender, Lungs clear Cardiovascular/Chest: Normal inspection, Regular rate, Normal Rhythm Peripheral Pulses: 2+ dorsalis pedis (R), 2+ dorsalis pedis (L), 2+ Radial (R), 2+ Radial (L) Abdominal Exam: Normal bowel sounds, Soft Rectal Exam: Other Male Genital Exam: Not done Neuro/Mental St: Alert, Oriented Appearance: Appropriate appearance, Appropriate insight Eye contact/ Speech: Cooperative, Good eye contact, Normal speech Thoughts/Psych: Normal thought pattern Skin Exam: Normal inspection, Normal color, Warm/dry, Other (coccyx ulcer) Wounds coccyx tunneled ulcer (chronic) Labs/Xrays Labs Test 10/17/24 23:23 10/17/24 22:00 10/17/24 20:33 10/17/24 20:04 Range/Units POC Glucose 244 H 70-106 mg/dl Prothrombin Time 14.3 H 9.3-11.8 sec Prothrombin Time INR 1.39 H 0.9-1.15 Troponin I High Sensitivity 110 *H </=34 ng/L Urine Color Yellow Yellow Urine Clarity Ex.turbid Clear Urine pH 5.5 5.0-9.0 Urine Specific [place] 1.023 1.001-1.035 Urine Protein 1+ H Negative Urine Ketones Negative Negative Urine Blood 1+ H Negative /uL Urine Nitrite 2+ H Negative Urine Bilirubin Negative Negative Urine Urobilinogen Normal Negative mg/dL Urine Leukocyte Esterase 3+ Negative /uL Urine RBC 49 0 - 4 /hpf Urine WBC Clumps Present None Seen /hpf Urine Microscopic WBC 137 H 0-5 /HPF Urine Squamous Epithelial Cells None seen <5 /hpf Urine Amorphous Crystals Few None Seen /hpf Urine Bacteria Few H None Seen /hpf Urine Mucus Few None Seen Urine Glucose Normal Normal mg/dL Lactic Acid Level 3.6 *H 0.4-2.0 mmol/L Test 10/17/24 17:41 Range/Units White Blood Count 12.2 H 4.4-10.8 10^3/uL Red Blood Count 3.62 L 4.0-5.20 10^6/uL Hemoglobin 9.4 L 12.2-16.2 g/dL Hematocrit 29.4 L 36.0-46.0 % Mean Corpuscular Volume 81.4 80.0-100.0 fL Mean Corpuscular Hemoglobin 26.1 L 28.0-32.0 pg Mean Corpuscular Hemoglobin Concent 32.1 32.0-36.0 g/dL Red Cell Distribution Width 17.6 H 11.8-14.3 % Platelet Count 164 140-450 10^3/uL Mean Platelet Volume 9.4 6.9-10.8 fL Neutrophils (%) (Auto) 92.1 H 37.0-80.0 % Lymphocytes (%) (Auto) 3.8 L 10.0-50.0 % Monocytes (%) (Auto) 3.9 0.0-12.0 % Eosinophils (%) (Auto) 0.0 0.0-7.0 % Basophils (%) (Auto) 0.2 0.0-2.0 % Neutrophils # (Auto) 11.2 H 1.6-8.6 10 ^3/uL Lymphocytes # (Auto) 0.5 0.4-5.4 10 ^3/uL Monocytes # (Auto) 0.5 0-1.3 10 ^3/uL Eosinophils # (Auto) 0 0-0.8 10 ^3/uL Basophils # (Auto) 0 0-0.2 10 ^3/uL Nucleated Red Blood Cells 0.0 % Sodium Level 138 136-145 mmol/L Potassium Level 3.7 3.5-5.1 mmol/L Chloride Level 105 98-107 mmol/L Carbon Dioxide Level 23 20-31 mmol/L Anion Gap 10 5-15 Blood Urea Nitrogen 34 H 9-23 mg/dL Creatinine 0.99 0.550-1.02 mg/dL Glomerular Filtration Rate Calc 59 >90 mL/min BUN/Creatinine Ratio 34.3 H 10.0-20.0 Serum Glucose 180 H 74-106 mg/dL Calcium Level 8.8 8.7-10.4 mg/dL Total Bilirubin 0.3 0.2-1.0 mg/dL Aspartate Amino Transferase (AST) 102 H 13-40 U/L Alanine Aminotransferase (ALT) 57 H 7-40 U/L Alkaline Phosphatase 162 H 46-116 U/L B-Type Natriuretic Peptide 179.21 0-100 pg/mL Total Protein 5.2 L 5.7-8.2 g/dL Albumin 2.9 L 3.2-4.8 g/dL Plasma/Serum Blood Alcohol < 3.0 <10 mg/dL Assessment/Plan Problem List: (1) Non-ST elevation (NSTEMI) myocardial infarction (2) Sepsis (3) UTI (urinary tract infection) (4) Metabolic encephalopathy (5) Osteomyelitis Plan This is a 78 yo female with known history of hypertension, DM, COPD, Thyroid disease, paraplegia, chronic sacral ulcer, supra pubic catheter presents to the hospital with altered mental status, low blood pressure. Patient was found to have 1. Urosepsis 2. Hypotension 3. NSTEMI 4. Osteomyelitis? 5. DM with hyperglycemia 6. Thyroid disease 7. COPD without exacerbation 8. Paraplegia 9. Chronic sacral ulcer 10. Supra pubic catheter Plan: Admit Telemetry unit Infectious disease consultation , IV antibiotics Vancomycin per pharmacy protocol, Zosyn Blood cultures x2, urine culture, wound culture, Lactic acid level Cardiology consultation, 2D echocardiogram, serial troponin levels, ASA, Statin, Lovenox SC Lipid panel, monitor BMP wound care consult Discussed all above with patient who verbalizes agreement and understanding of care plan. All questions were answered. Discussed assessment and care plan with supervising MD. Plan discussed with: Patient, Other Code Visit Code Visit Total Time (mins): 45 Additional Comments Additional Comments Additional Comments The patient was seen and evaluated by me. I agree with the assessment and plan as outlined by my nurse practitioner. ANTONINA MICHAUD October 18, 2024 01:35 THIAGO SLOAN MD October 18, 2024 16:44
[2024-10-18] MEDS: PIPERACILLIN-TAZOB 3.375GM 100 ML IV SCH (02:33)
[2024-10-18 04:11] LABS: Basophils # (auto) 0 10 ^3/uL (0-0.2); Eosinophils # (auto) 0 10 ^3/uL (0-0.8); Hemoglobin 8.8 g/dL (12.2-16.2); Lymphocytes # (auto) 0.5 10 ^3/uL (0.4-5.4); Lymphocytes % (auto) 6.6 % (10.0-50.0); Monocytes # (auto) 0.4 10 ^3/uL (0-1.3)
[2024-10-18 04:15] LABS: Basophils % (auto) 0.2 % (0.0-2.0); Eosinophils % (auto) 0.5 % (0.0-7.0); Hematocrit 26.4 % (36.0-46.0); Mean Corpuscular Hemoglobin 26.7 pg (28.0-32.0); Mean Corpuscular Hgb Conc. 33.2 g/dL (32.0-36.0); Mean Corpuscular Volume 80.2 fL (80.0-100.0); Monocytes % (auto) 4.6 % (0.0-12.0); Neutrophils % (auto) 88.1 % (37.0-80.0); Platelet Count (auto) 138 10^3/uL (140-450); Red Blood Cells 3.29 10^6/uL (4.0-5.20); Red Cell Distribution Width 17.6 % (11.8-14.3); White Blood Cell 7.9 10^3/uL (4.4-10.8)
[2024-10-18 04:20] LABS: Chloride 106 mmol/L (98-107); Potassium 3.7 mmol/L (3.5-5.1); Sodium 138 mmol/L (136-145)
[2024-10-18 04:21] LABS: Anion Gap 8 (5-15); Carbon Dioxide 24 mmol/L (20-31)
[2024-10-18 04:31] LABS: Blood Urea Nitrogen 37 mg/dL (9-23); Calcium 7.8 mg/dL (8.7-10.4); Glucose 148 mg/dL (74-106)
[2024-10-18 05:17] LABS: BUN/Creatinine Ratio 36.3 (10.0-20.0)
[2024-10-18 08:47] VITALS: PULSE 63; RESP 10; O2SAT 100
[2024-10-18] MEDS: ENOXAPARIN SOD 40 MG/0.4 ML SYRINGE SC SCH (10:00)
[2024-10-18] MEDS: PANTOPRAZOLE 40 MG/10 ML VIAL INJ IV SCH (10:52)
[2024-10-18] MEDS: ASPirin-EC 81 mg tab PO SCH (11:14)
[2024-10-18] MEDS: VANCOMYCIN 500mg/100mL 100 ML IV SCH (12:33)
--- NOTE | 2024-10-18 12:43 | ECG ---
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
--- NOTE | 2024-10-18 14:10 | DVHSR ---
APPROVED REPORT EXAM: Two-dimensional and M-mode echocardiogram with Doppler and color Doppler. Blood Pressure: 109/47 mmHg INDICATION Elevated trops RISK FACTORS Height: 60, Weight: 141 DIMENSIONS LVDd4.0 (3.8-5.7cm)LA (2D)4.2 (1.9-4.0cm)Aortic Root3.3 (2.0-3.7cm) LVDs2.6 (2.5-4.0cm)LA (MM) (1.9-4.0cm)Aortic Cusp Exc1.5 (1.5-2.0cm) EF (%) 66.0 (55-70%)Rt. Atrium4.1 (1.9-4.0cm)Asc. Aorta cm Mitral Valve MitralMitral Stenosis E wave0.86m/sMV Mean GR.mmHg A wave0.77m/sMV Peak GR.mmHg E/A ratio1.12D MVAcm2 DECEL [id number] 1/2 Olck54vs IVRTmsDop MVA2.50cm2 Aortic Valve Aortic ValveAortic Stenosis V11.06m/Rosa Mean GR.4mmHg V21.41m/Rosa Peak GR.8mmHg LVOT Diameter2.1 (1.8-2.4cm)Doppler AVA2.60cm2 Tricuspid Valve TR Velocity2.20m/s [id number] Other Information Technically limited study due to body habitus and patient position. Conclusion lvef 60% mild LVH normal rv function left atrium enlarged no severe valve abnormalities noted
[2024-10-18] MEDS ORDERED: SIMV40TA18 PO (20:09)
[2024-10-18] MEDS ORDERED: LEVO100T8 PO (20:09)
[2024-10-18] MEDS ORDERED: METF-370 PO (20:09)
[2024-10-18] MEDS ORDERED: GABA-339 PO (20:09)
[2024-10-18] MEDS ORDERED: PANT40T PO (20:09)
[2024-10-18] MEDS ORDERED: TRAM50TA2 PO (20:10)
[2024-10-18] MEDS ORDERED: MAGN400T40 PO (20:29)
[2024-10-18] MEDS ORDERED: LEVO88TA4 PO (20:31)
[2024-10-18] MEDS ORDERED: GLIP5TAB21 PO (20:52)
[2024-10-18 21:00] VITALS: BP 127/54; PULSE 80; RESP 18; TEMP 98.6; O2SAT 100
[2024-10-18] MEDS: ACETAMINOPHEN 325 MG TAB PO PRN (23:53)
[2024-10-19] VITALS (8 sets, daily range): BP systolic 104–147; BP diastolic 40–59; PULSE 60–87; RESP 11–18; TEMP 97.3–99.9; O2SAT 96–99
[2024-10-19 07:35] LABS: Chloride 107 mmol/L (98-107); Sodium 140 mmol/L (136-145)
[2024-10-19 07:36] LABS: Anion Gap 9 (5-15); Calcium 8.9 mg/dL (8.7-10.4); Carbon Dioxide 24 mmol/L (20-31)
[2024-10-19 07:41] LABS: BUN/Creatinine Ratio 49.4 (10.0-20.0); Blood Urea Nitrogen 41 mg/dL (9-23); Glucose 161 mg/dL (74-106); Potassium 3.4 mmol/L (3.5-5.1)
[2024-10-19 08:02] LABS: Basophils # (auto) 0 10 ^3/uL (0-0.2); Basophils % (auto) 0.1 % (0.0-2.0); Eosinophils # (auto) 0.1 10 ^3/uL (0-0.8); Eosinophils % (auto) 1.5 % (0.0-7.0); Hematocrit 25.7 % (36.0-46.0); Hemoglobin 8.6 g/dL (12.2-16.2); Lymphocytes # (auto) 0.4 10 ^3/uL (0.4-5.4); Lymphocytes % (auto) 5.6 % (10.0-50.0); Mean Corpuscular Hemoglobin 26.4 pg (28.0-32.0); Mean Corpuscular Hgb Conc. 33.4 g/dL (32.0-36.0); Mean Corpuscular Volume 78.9 fL (80.0-100.0); Monocytes # (auto) 0.5 10 ^3/uL (0-1.3); Monocytes % (auto) 7.2 % (0.0-12.0); Neutrophils # (auto) 5.5 10 ^3/uL (1.6-8.6); Neutrophils % (auto) 85.6 % (37.0-80.0); Platelet Count (auto) 147 10^3/uL (140-450); Red Blood Cells 3.26 10^6/uL (4.0-5.20); Red Cell Distribution Width 17.3 % (11.8-14.3); White Blood Cell 6.4 10^3/uL (4.4-10.8)
--- NOTE | 2024-10-19 10:15 | DVHINCON2 ---
Date Seen: October 19, 2024 Referring Physician MENDY Javier Reason for Consultation Elevated troponin History of Present Illness This is a pleasant 78-year-old female who presented to the emergency room via EMS with a chief complaint of an altered level of consciousness. At time of assessment, the patient was found A&O x 4. She does not recall events preceding to admission. Per records she was found ALOC and hypotensive by family members who called 911. EN route to the hospital she was administered NS x 500 mls, PD Epi 0.01 mg, and checked for a BGL of 121 mg/dL. She underwent a 12 lead electrocardiogram revealing a normal sinus rhythm. Denies chest pain, palpitati ons, diaphoresis, SOB, or dizziness. Significant medical history includes hypertension, dyslipidemia, rll-[id number] diabetes mellitus, hypothyroidism, paraplegia with bed-bound status and chronic Martinez catheter, chronic sacral wound, and obesity. Past Medical History Past medical history reviewed. No other significant than mentioned above. Past Surgical History Back/spine Right shoulder Sacrum Right hip Family History: Diabetes mellitus G8 MOTHER FH: myocardial infarction G8 MOTHER G8 FATHER Family History Family history reviewed. Social History Denies the use of illicit drugs, alcohol, or tobacco use. Allergies: Coded Allergies: Gentamicin (Verified Adverse Reaction, Mild, 02/24/24) hearing Home Meds Reported Medications Glipizide (Glipizide) 5 Mg Tab, 1 TAB PO BID 10/18/24 Levothyroxine Sodium (Levothyroxine Sodium) 88 Mcg Tab, 1 TAB PO DAILY, #30 TAB 5 Refills 10/18/24 Magnesium Oxide (MAGNESIUM OXIDE) 400 Mg Tab, 400 MG PO HS, TAB 10/18/24 Tramadol Hcl (Tramadol Hcl) 50 Mg Tab, 50 MG PO TID, TAB 10/18/24 Pantoprazole Sodium Sesquihydr (Pantoprazole Sodium) 40 Mg Tab, 1 TAB PO DAILY 10/18/24 Simvastatin (Simvastatin) 40 Mg Tab, 1 TAB PO 10/18/24 Metformin Hydrochloride (Metformin Hcl) 500 Mg Tab, 1 TAB PO BID 10/18/24 Gabapentin (Gabapentin) 600 Mg Tab, 1 TAB PO TID 10/18/24 Oxycodone W/ Acetaminophen (Percocet 5/325MG) 1 Tab Tb, 1 TAB PO Q4HPRN PRN for PAIN SCALE 1 THRU 6, #60 TAB 2/15/20 Zinc Sulfate (Zinc Sulfate) 220 Mg Cap, 50 MG PO DAILY for 30 Days, MG 07/24/19 Ascorbic Acid (Vitamin C) 1,000 Mg Tab, 1000 MG PO, TAB 07/24/19 Cyanocobalamin (B12) 1,000 Mcg Tab, 500 MCG PO DAILY, TAB 07/24/19 Cranberry Extract (CRANBERRY) 600 Mg Tab, 600 MG OR DAILY, TAB 07/24/19 Cholecalciferol (VITAMIN D3) 2,000 Unit Tab, 1000 UNIT OR, TAB 07/24/19 [place]-3 Fatty Acids ([place] 3 500 500 mg) 1 Cap Cap, 2 CAP PO DAILY, CAP 07/24/19 Biotin (Vitamin H) (Biotin Maximum) 10,000 Mcg Tab, 47791 MCG PO DAILY, TAB 07/24/19 Magnesium Oxide (Mg Supplement (MAGNESIUM) 400 Mg Cap, 400 MG PO, CAP 07/24/19 Pantoprazole Sodium Sesquihydr (Protonix) 40 Mg Tab, 40 MG PO DAILY, #30 TAB 07/24/19 Cyclobenzaprine Hcl (Cyclobenzaprine Hcl) 10 Mg Tab, 10 MG PO TID, TAB 07/24/19 Metformin HCl (Metformin Hydrochloride) 500 Mg/5 Ml Nilda, 500 MG PO BID, ML 07/24/19 Tramadol Hcl (Ultram) 50 Mg Tab, 50 MG OR Q6HR 02/19/10 Simvastatin (Simvastatin) 20 Mg Tab, 20 MG OR DAILY 02/19/10 Amitriptyline Hcl (Amitriptyline Hcl) 50 Mg Tab, 50 MG OR HS 02/19/10 Levothyroxine Sodium (Levothyroxine Sodium) 88 Mcg Tab, 88 MCG OR DAILY 02/19/10 Quinapril-Hydrochlorothiazide (Quinapril/Hydrochlorothia) 1 Tab Tab, 2 TAB OR DAILY 02/19/10 [Aleye] No Conflict Check 02/18/10 Discontinued Reported Medications Levothyroxine Sodium (Levothyroxine Sodium) 100 Mcg Tab, 1 TAB PO DAILY 10/18/24 Home Meds Home medications reviewed. Current Medications Current Medications Medications (Trade) Dose Ordered Sig/Daniel Route PRN Reason Start Time Stop Time Status Last Admin Pantoprazole Sodium (Protonix) 40 mg DAILY IV 10/18/24 10:00 10/18/24 10:52 Enoxaparin Sodium (Lovenox) 40 mg DAILY SC 10/18/24 10:00 Aspirin (Ecotrin Enteric Coated Tablet) 81 mg DAILY PO 10/18/24 10:00 10/18/24 11:14 Vancomycin HCl 100 ml @ 200 mls/hr Q12H IV 10/18/24 12:00 10/18/24 23:46 Review of Systems Constitutional: No symptom reported Ears, Nose, & Throat: No symptom reported Eyes: No symptom reported Neurological: ALOC Pulmonary/Respiratory: No symptom reported Cardiovascular: No symptom reported Gastrointestinal: No symptom reported Genitourinary: No symptom reported Musculoskeletal: No symptom reported Skin: No symptom reported Psychiatric: No symptom reported Endocrine: No symptom reported Hemotologic/Lymphatic: No symptom reported Vital Signs Vital Signs Date Time Temp Pulse Resp B/P (MAP) Pulse Ox O2 Delivery O2 Flow Rate FiO2 10/19/24 08:48 97.3 68 18 108/47 (67) 99 97.3 10/18/24 08:47 Nasal Cannula* 2 28 Physical Exam General Appearance: Cooperative. Well developed. Well nourished. In no acute distress Head Exam: Normal inspection Neck Exam: Normal inspection. Non-tender. Normal alignment Pulmonary/Respiratory: Chest non-tender. Clear bilateral breath sounds Cardiovascular/Chest: Regular rate and rhythm. S1, S2. NSR. No murmurs. No JVD. Peripheral Pulses: 2+ Radial (R). 2+ Radial (L). 2+ Pedal (R). 2+ Pedal (L) Abdominal Exam: Normal bowel sounds. Soft. Ankle Exam: Negative ankle edema Lower extremities: Negative lower extremity edema Neuro/Mental Status: A&O x4. Coherent Thoughts/Psych: Normal thought pattern. Appropriate mood and affect. Pleasant Appearance: In no acute distress Skin Exam: Normal inspection. Normal color. Warm. Dry Labs/Diagnostic Data Labs Test 10/19/24 06:39 10/19/24 05:36 10/18/24 12:51 10/18/24 03:39 Range/Units White Blood Count 6.4 4.4-10.8 10^3/uL Red Blood Count 3.26 L 4.0-5.20 10^6/uL Hemoglobin 8.6 L 12.2-16.2 g/dL Hematocrit 25.7 L 36.0-46.0 % Mean Corpuscular Volume 78.9 L 80.0-100.0 fL Mean Corpuscular Hemoglobin 26.4 L 28.0-32.0 pg Mean Corpuscular Hemoglobin Concent 33.4 32.0-36.0 g/dL Red Cell Distribution Width 17.3 H 11.8-14.3 % Platelet Count 147 140-450 10^3/uL Mean Platelet Volume 9.9 6.9-10.8 fL Neutrophils (%) (Auto) 85.6 H 37.0-80.0 % Lymphocytes (%) (Auto) 5.6 L 10.0-50.0 % Monocytes (%) (Auto) 7.2 0.0-12.0 % Eosinophils (%) (Auto) 1.5 0.0-7.0 % Basophils (%) (Auto) 0.1 0.0-2.0 % Neutrophils # (Auto) 5.5 1.6-8.6 10 ^3/uL Lymphocytes # (Auto) 0.4 0.4-5.4 10 ^3/uL Monocytes # (Auto) 0.5 0-1.3 10 ^3/uL Eosinophils # (Auto) 0.1 0-0.8 10 ^3/uL Basophils # (Auto) 0 0-0.2 10 ^3/uL Nucleated Red Blood Cells 0.0 % Sodium Level 140 136-145 mmol/L Potassium Level 3.4 L 3.5-5.1 mmol/L Chloride Level 107 98-107 mmol/L Carbon Dioxide Level 24 20-31 mmol/L Anion Gap 9 5-15 Blood Urea Nitrogen 41 H 9-23 mg/dL Creatinine 0.83 0.550-1.02 mg/dL Glomerular Filtration Rate Calc 73 >90 mL/min BUN/Creatinine Ratio 49.4 H 10.0-20.0 Serum Glucose 161 H 74-106 mg/dL Calcium Level 8.9 8.7-10.4 mg/dL POC Glucose 169 H 70-106 mg/dl Troponin I High Sensitivity 47 *H </=34 ng/L Lactic Acid Level 1.6 0.4-2.0 mmol/L Test 10/17/24 22:00 10/17/24 20:33 10/17/24 17:41 Range/Units Prothrombin Time 14.3 H 9.3-11.8 sec Prothrombin Time INR 1.39 H 0.9-1.15 Urine Color Yellow Yellow Urine Clarity Ex.turbid Clear Urine pH 5.5 5.0-9.0 Urine Specific [place] 1.023 1.001-1.035 Urine Protein 1+ H Negative Urine Ketones Negative Negative Urine Blood 1+ H Negative /uL Urine Nitrite 2+ H Negative Urine Bilirubin Negative Negative Urine Urobilinogen Normal Negative mg/dL Urine Leukocyte Esterase 3+ Negative /uL Urine RBC 49 0 - 4 /hpf Urine WBC Clumps Present None Seen /hpf Urine Microscopic WBC 137 H 0-5 /HPF Urine Squamous Epithelial Cells None seen <5 /hpf Urine Amorphous Crystals Few None Seen /hpf Urine Bacteria Few H None Seen /hpf Urine Mucus Few None Seen Urine Glucose Normal Normal mg/dL Total Bilirubin 0.3 0.2-1.0 mg/dL Aspartate Amino Transferase (AST) 102 H 13-40 U/L Alanine Aminotransferase (ALT) 57 H 7-40 U/L Alkaline Phosphatase 162 H 46-116 U/L B-Type Natriuretic Peptide 179.21 0-100 pg/mL Total Protein 5.2 L 5.7-8.2 g/dL Albumin 2.9 L 3.2-4.8 g/dL Plasma/Serum Blood Alcohol < 3.0 <10 mg/dL Microbiology Date/Time Source Procedure Growth Status 10/17/24 20:33 Urine - Catheterized Urine Culture - Preliminary Resulted 10/17/24 17:41 Blood Blood Culture - Preliminary Resulted Assessment Sepsis with UTI and possible osteomyelitis NSTEMI, likely type 2 secondary to above Hypertension Dyslipidemia Utc-glssazm-fizhzbyog diabetes mellitus Paraplegia with bed-bound status/chronic sacral wound/chronic Martinez catheter Acute on chronic anemia Plan/Recommendation (Dr. Booth) Transthoracic echocardiogram revealed LVEF of 60% with mild LVH and left atrium enlargement. Likely NSTEMI type 2 secondary to sepsis. Patient is cardiac stable. Continue ABX therapy per primary care team. Replete electrolytes as necessary. There is no further cardiac workup indicated at this time. Kindly call with any questions or concerns. Thank you for allowing us to participate in this patient's care. This medical document was created using an electronic medical record system with voice recognition software and computerized dictation system. Although this document has been carefully reviewed, there might still be some phonetic and typographical errors. Occasional wrong-word or ``sound-alike substitutions may have occurred due to the inherent limitations of voice recognition software. These areas are purely typographical due to imperfections of the software programs and do not reflect any compromise in the patient's medical care. Please read the chart carefully and recognize, using context, where these substitutions have occurred. Plan discussed with: Patient, Other [place]HA Physical activity limitations: NA Date of Service: October 19, 2024 Billing Provider: TEZ SMITH Cardiology Common Codes: [id number] INP/OBS CARE (High) TEZ SMITH October 19, 2024 10:15
[2024-10-19 10:20] LABS: Triglycerides 106 mg/dL (< 150)
[2024-10-19 10:21] LABS: LDL Cholesterol 29 mg/dL (< 100); Magnesium 1.6 mg/dL (1.6-2.6)
[2024-10-19 10:22] LABS: Cholesterol 65 mg/dL (< 200)
[2024-10-19 10:25] LABS: HDL Cholesterol < 5 mg/dL (40-59)
[2024-10-19] MEDS: POTASSIUM CHL 20 Meq TABLET PO ONE (12:02)
--- NOTE | 2024-10-19 15:44 | DVHPN2 ---
Subjective Overnight events noted. Patient denies any complaints today. Changes from previous H/P or p: No Changes Objective Vitals Vital Signs Date Time Temp Pulse Resp B/P (MAP) Pulse Ox O2 Delivery O2 Flow Rate FiO2 10/19/24 08:48 97.3 68 18 108/47 (67) 99 97.3 10/18/24 08:47 Nasal Cannula* 2 28 Intake/Output Intake and Output 10/19/24 07:00 Intake Total 870 ml Output Total 925 ml Balance -55 ml Intake Oral 470 ml IV Total 400 ml Output Urine Total 925 ml Exam HEENT pupils are reactive Neck is supple CV is S1-S2 regular rate and rhythm Respiratory are clear GI positive bowel sounds positive suprapubic gastric Extremity no edema [employer] paraplegia Skin sacral wounds. Medications Current Medications Medications Dose Ordered Sig/Daniel Route Start Time Stop Time Status Last Admin Dose Admin Nitroglycerin 0.4 mg Q5MINP PRN SL 10/17/24 21:45 Morphine Sulfate 2 mg Q30M PRN IV 10/17/24 21:45 Vancomycin HCl 0 ml @ 0 mls/hr UD IV 10/17/24 21:45 Piperacillin Sod/ Tazobactam Sod 100 ml @ 100 mls/hr Q8HR@0200,1000,1800 IV 10/18/24 02:00 10/19/24 11:29 100 MLS/HR Acetaminophen 650 mg Q6HPRN PRN PO 10/17/24 21:45 10/19/24 15:15 650 MG Pantoprazole Sodium 40 mg DAILY IV 10/18/24 10:00 10/19/24 11:29 40 MG Enoxaparin Sodium 40 mg DAILY SC 10/18/24 10:00 10/19/24 11:30 40 MG Atorvastatin Calcium 40 mg HS PO 10/17/24 22:00 10/18/24 22:24 40 MG Aspirin 81 mg DAILY PO 10/18/24 10:00 10/19/24 11:29 81 MG Ondansetron HCl 4 mg Q6HPRN PRN IV 10/17/24 21:45 Diagnostic Test (Pha) 1 strip ACHS 10/17/24 22:00 10/19/24 11:30 1 STRIP Insulin Human Regular ACHS SC 10/17/24 22:00 10/19/24 12:09 2 UNITS Dextrose 50 ml UD PRN IV 10/17/24 21:45 Vancomycin HCl 100 ml @ 200 mls/hr Q12H IV 10/18/24 12:00 10/19/24 12:21 200 MLS/HR Laboratory Results Laboratory Tests 10/19/24 06:39 Chemistry Test 10/19/24 06:39 Calcium Level 8.9 mg/dL (8.7-10.4) Magnesium Level 1.6 mg/dL (1.6-2.6) Lipid panel Test 10/19/24 06:39 Cholesterol Level 65 mg/dL (< 200) HDL Cholesterol < 5 mg/dL (40-59) L Triglycerides Level 106 mg/dL (< 150) HgA1c, TSH Test 10/19/24 06:39 Hemoglobin A1c 6.5 % A1C (<5.7) H Thyroid Stimulating Hormone (TSH) 1.66 uIU/mL (0.55-4.78) Urinalysis Test 10/17/24 20:33 Urine Color Yellow (Yellow) Urine Clarity Ex.turbid (Clear) Urine pH 5.5 (5.0-9.0) Urine Specific [place] 1.023 (1.001-1.035) Urine Protein 1+ (Negative) H Urine Ketones Negative (Negative) Urine Blood 1+ /uL (Negative) H Urine Nitrite 2+ (Negative) H Urine Bilirubin Negative (Negative) Urine Urobilinogen Normal mg/dL (Negative) Urine Leukocyte Esterase 3+ /uL (Negative) Urine RBC 49 /hpf (0 - 4) Urine WBC Clumps Present /hpf (None Seen) Urine Microscopic WBC 137 /HPF (0-5) H Urine Squamous Epithelial Cells None seen /hpf (<5) Urine Amorphous Crystals Few /hpf (None Seen) Urine Bacteria Few /hpf (None Seen) H Urine Mucus Few (None Seen) Urine Glucose Normal mg/dL (Normal) Microbiology Microbiology Date/Time Source Procedure Growth Status 10/18/24 03:02 Sacrum Gram Stain - Final Resulted 10/18/24 03:02 Sacrum Wound Culture - Preliminary Resulted 10/17/24 20:33 Urine - Catheterized Urine Culture - Preliminary Resulted 10/17/24 17:41 Blood Blood Culture - Preliminary Resulted Assessment/Plan Assessment/Plan 78-year-old female with a known history of paraplegia secondary to staph infection in the past, chronic bed-bound status, chronic suprapubic catheter, hypertension, dyslipidemia, who initially presented to the hospital with altered mental status and hypotension found to have 1. Sepsis secondary to UTI and Gram-negative bacteremia and sacral wound infection 2. Gram-positive UTI 3. Gram-negative bacteremia 4. Coag-negative Staphylococcus in sacral wound 5. Elevated troponin suspect NSTEMI type 2 secondary to sepsis 6. Hypertension 7. Dyslipidemia 8. Hypothyroidism 9. Paraplegia 10. Chronic suprapubic catheter currently complicated UTI 11. Acute on chronic anemia -continue IV antibiotics, infectious disease consultation, wound care. -repeat blood cultures Plan discussed with: Patient My Orders Orders - THIAGO SLOAN MD Procedure Category Date Status Time * Infectious [place]- CONS 10/19/24 Transmitted [place] 14:19 Date of Service: October 19, 2024 Billing Provider: THIAGO SLOAN MD Common Visit Codes: NOT BILLABLE THIAGO SLOAN MD October 19, 2024 15:44
[2024-10-19] MEDS ORDERED: MORPHINE SULFATE INJ 2 MG/ml SYRG IV PRN (17:15)
[2024-10-19] MEDS: HYDROcodone-ACET 5/325MG TAB PO PRN (19:52)
[2024-10-20 01:00] VITALS: BP_SYST 113; BP_SYST 124; BP_DIAS 51; BP_DIAS 56; PULSE 70; PULSE 74; RESP 16; TEMP 98; TEMP 98.1; O2SAT 100; O2SAT 97
[2024-10-20 07:35] LABS: Basophils # (auto) 0 10 ^3/uL (0-0.2); Basophils % (auto) 0.1 % (0.0-2.0); Eosinophils # (auto) 0.1 10 ^3/uL (0-0.8); Eosinophils % (auto) 1.6 % (0.0-7.0); Hematocrit 25.1 % (36.0-46.0); Hemoglobin 8.4 g/dL (12.2-16.2); Lymphocytes # (auto) 0.5 10 ^3/uL (0.4-5.4); Lymphocytes % (auto) 7.6 % (10.0-50.0); Mean Corpuscular Hemoglobin 26.4 pg (28.0-32.0); Mean Corpuscular Hgb Conc. 33.5 g/dL (32.0-36.0); Mean Corpuscular Volume 78.6 fL (80.0-100.0); Monocytes # (auto) 0.4 10 ^3/uL (0-1.3); Monocytes % (auto) 6.6 % (0.0-12.0); Neutrophils % (auto) 84.1 % (37.0-80.0); Platelet Count (auto) 140 10^3/uL (140-450); Red Blood Cells 3.19 10^6/uL (4.0-5.20); Red Cell Distribution Width 17.2 % (11.8-14.3); White Blood Cell 5.9 10^3/uL (4.4-10.8)
[2024-10-20 07:41] LABS: Potassium 4.2 mmol/L (3.5-5.1); Sodium 139 mmol/L (136-145)
[2024-10-20 07:42] LABS: Anion Gap 8 (5-15); Calcium 9.2 mg/dL (8.7-10.4); Carbon Dioxide 24 mmol/L (20-31)
[2024-10-20 07:47] LABS: BUN/Creatinine Ratio 52.6 (10.0-20.0)
[2024-10-20 07:50] LABS: Blood Urea Nitrogen 40 mg/dL (9-23); Chloride 107 mmol/L (98-107); Glucose 107 mg/dL (74-106)
[2024-10-20 08:15] VITALS: PULSE 81; RESP 18; O2SAT 96
--- NOTE | 2024-10-20 08:54 | DVHINCON2 ---
Date of service: October 20, [address] Liriano Reason for Consultation bacteremia History of Present Illness A 78-year-old female with past medical history of paraplegia, bed-bound status with suprapubic catheter, diabetes presented with altered mental status and low blood pressures close past three days. According to the chart she lives alone and has two caretakers. She usually gets around in wheelchair Upon presentation, she has elevated WBC count both blood cultures positive for pasteurella. Infectious disease consulted to help with antibiotic management Family History: Diabetes mellitus G8 MOTHER FH: myocardial infarction G8 MOTHER G8 FATHER Allergies: Coded Allergies: Gentamicin (Verified Adverse Reaction, Mild, 02/24/24) hearing Home Meds Reported Medications Glipizide (Glipizide) 5 Mg Tab, 1 TAB PO BID 10/18/24 Levothyroxine Sodium (Levothyroxine Sodium) 88 Mcg Tab, 1 TAB PO DAILY, #30 TAB 5 Refills 10/18/24 Magnesium Oxide (MAGNESIUM OXIDE) 400 Mg Tab, 400 MG PO HS, TAB 10/18/24 Tramadol Hcl (Tramadol Hcl) 50 Mg Tab, 50 MG PO TID, TAB 10/18/24 Pantoprazole Sodium Sesquihydr (Pantoprazole Sodium) 40 Mg Tab, 1 TAB PO DAILY 10/18/24 Simvastatin (Simvastatin) 40 Mg Tab, 1 TAB PO 10/18/24 Metformin Hydrochloride (Metformin Hcl) 500 Mg Tab, 1 TAB PO BID 10/18/24 Gabapentin (Gabapentin) 600 Mg Tab, 1 TAB PO TID 10/18/24 Oxycodone W/ Acetaminophen (Percocet 5/325MG) 1 Tab Tb, 1 TAB PO Q4HPRN PRN for PAIN SCALE 1 THRU 6, #60 TAB 07/24/19 Zinc Sulfate (Zinc Sulfate) 220 Mg Cap, 50 MG PO DAILY for 30 Days, MG 07/24/19 Ascorbic Acid (Vitamin C) 1,000 Mg Tab, 1000 MG PO, TAB 07/24/19 Cyanocobalamin (B12) 1,000 Mcg Tab, 500 MCG PO DAILY, TAB 07/24/19 Cranberry Extract (CRANBERRY) 600 Mg Tab, 600 MG OR DAILY, TAB 07/24/19 Cholecalciferol (VITAMIN D3) 2,000 Unit Tab, 1000 UNIT OR, TAB 07/24/19 [place]-3 Fatty Acids ([place] 3 500 500 mg) 1 Cap Cap, 2 CAP PO DAILY, CAP 07/24/19 Biotin (Vitamin H) (Biotin Maximum) 10,000 Mcg Tab, 37550 MCG PO DAILY, TAB 07/24/19 Magnesium Oxide (Mg Supplement (MAGNESIUM) 400 Mg Cap, 400 MG PO, CAP 07/24/19 Pantoprazole Sodium Sesquihydr (Protonix) 40 Mg Tab, 40 MG PO DAILY, #30 TAB 07/24/19 Cyclobenzaprine Hcl (Cyclobenzaprine Hcl) 10 Mg Tab, 10 MG PO TID, TAB 07/24/19 Metformin HCl (Metformin Hydrochloride) 500 Mg/5 Ml Nilda, 500 MG PO BID, ML 07/24/19 Tramadol Hcl (Ultram) 50 Mg Tab, 50 MG OR Q6HR 02/19/10 Simvastatin (Simvastatin) 20 Mg Tab, 20 MG OR DAILY 02/19/10 Amitriptyline Hcl (Amitriptyline Hcl) 50 Mg Tab, 50 MG OR HS 02/19/10 Levothyroxine Sodium (Levothyroxine Sodium) 88 Mcg Tab, 88 MCG OR DAILY 02/19/10 Quinapril-Hydrochlorothiazide (Quinapril/Hydrochlorothia) 1 Tab Tab, 2 TAB OR DAILY 02/19/10 [[place]] No Conflict Check 02/18/10 Discontinued Reported Medications Levothyroxine Sodium (Levothyroxine Sodium) 100 Mcg Tab, 1 TAB PO DAILY 10/18/24 Current Medications Current Medications Medications (Trade) Dose Ordered Sig/Daniel Route PRN Reason Start Time Stop Time Status Last Admin Acetaminophen/ Hydrocodone Bitart ([place] 5/325MG Tab) 1 tab Q4HPRN PRN PO MODERATE PAIN (4-6 PAIN SCALE) 10/19/24 17:15 10/20/24 00:00 Morphine Sulfate 2 mg Q4HPRN PRN IV SEVERE PAIN (7-10 PAIN SCALE) 10/19/24 17:15 Review of Systems Constitutional: no fever, chill, weight loss, generalized weakness HEENT: no eye pain, no hearing loss, no oral lesion, Heart: no chest pain, no chest pressure Lung: no cough and dyspnea Abdomen: no nausea, no vomiting, no abdominal pain : no pain with urination, normal appearing urine Musculoskeletal: no joint pain, no muscle pain Neurological: As noted in HPI Pysch: no depression, no anxiety Vital Signs Vital Signs Date Time Temp Pulse Resp B/P (MAP) Pulse Ox O2 Delivery O2 Flow Rate FiO2 10/20/24 01:00 98.0 74 16 124/56 (78) 97 98.0 10/19/24 20:00 Room Air* 0 21 Physical Exam General alert and oriented HEENT: Atraumatic Neck: No swelling Lungs: Equal air entry and clear to auscultation Cardiovascular: S2 heard no murmur Abdomen: Soft nontender, suprapubic catheter Neuro: Alert and oriented, paraplegia Psych: Normal mood and affect Skin decubitus wound Labs/Diagnostic Data Labs Test 10/20/24 06:58 10/20/24 05:55 10/19/24 10:23 10/19/24 06:39 Range/Units White Blood Count 5.9 4.4-10.8 10^3/uL Red Blood Count 3.19 L 4.0-5.20 10^6/uL Hemoglobin 8.4 L 12.2-16.2 g/dL Hematocrit 25.1 L 36.0-46.0 % Mean Corpuscular Volume 78.6 L 80.0-100.0 fL Mean Corpuscular Hemoglobin 26.4 L 28.0-32.0 pg Mean Corpuscular Hemoglobin Concent 33.5 32.0-36.0 g/dL Red Cell Distribution Width 17.2 H 11.8-14.3 % Platelet Count 140 140-450 10^3/uL Mean Platelet Volume 9.2 6.9-10.8 fL Neutrophils (%) (Auto) 84.1 H 37.0-80.0 % Lymphocytes (%) (Auto) 7.6 L 10.0-50.0 % Monocytes (%) (Auto) 6.6 0.0-12.0 % Eosinophils (%) (Auto) 1.6 0.0-7.0 % Basophils (%) (Auto) 0.1 0.0-2.0 % Neutrophils # (Auto) 5.0 1.6-8.6 10 ^3/uL Lymphocytes # (Auto) 0.5 0.4-5.4 10 ^3/uL Monocytes # (Auto) 0.4 0-1.3 10 ^3/uL Eosinophils # (Auto) 0.1 0-0.8 10 ^3/uL Basophils # (Auto) 0 0-0.2 10 ^3/uL Nucleated Red Blood Cells 0.0 % Sodium Level 139 136-145 mmol/L Potassium Level 4.2 3.5-5.1 mmol/L Chloride Level 107 98-107 mmol/L Carbon Dioxide Level 24 20-31 mmol/L Anion Gap 8 5-15 Blood Urea Nitrogen 40 H 9-23 mg/dL Creatinine 0.76 0.550-1.02 mg/dL Glomerular Filtration Rate Calc 81 >90 mL/min BUN/Creatinine Ratio 52.6 H 10.0-20.0 Serum Glucose 107 H 74-106 mg/dL Calcium Level 9.2 8.7-10.4 mg/dL POC Glucose 101 70-106 mg/dl Vancomycin Level Trough 15.3 H 5-10 ug/mL Hemoglobin A1c 6.5 H <5.7 % A1C Magnesium Level 1.6 1.6-2.6 mg/dL Triglycerides Level 106 < 150 mg/dL Cholesterol Level 65 < 200 mg/dL LDL Cholesterol 29 < 100 mg/dL HDL Cholesterol < 5 L 40-59 mg/dL Thyroid Stimulating Hormone (TSH) 1.66 0.55-4.78 uIU/mL Test 10/18/24 12:51 10/18/24 03:39 10/17/24 22:00 10/17/24 20:33 Range/Units Troponin I High Sensitivity 47 *H </=34 ng/L Lactic Acid Level 1.6 0.4-2.0 mmol/L Prothrombin Time 14.3 H 9.3-11.8 sec Prothrombin Time INR 1.39 H 0.9-1.15 Urine Color Yellow Yellow Urine Clarity Ex.turbid Clear Urine pH 5.5 5.0-9.0 Urine Specific [place] 1.023 1.001-1.035 Urine Protein 1+ H Negative Urine Ketones Negative Negative Urine Blood 1+ H Negative /uL Urine Nitrite 2+ H Negative Urine Bilirubin Negative Negative Urine Urobilinogen Normal Negative mg/dL Urine Leukocyte Esterase 3+ Negative /uL Urine RBC 49 0 - 4 /hpf Urine WBC Clumps Present None Seen /hpf Urine Microscopic WBC 137 H 0-5 /HPF Urine Squamous Epithelial Cells None seen <5 /hpf Urine Amorphous Crystals Few None Seen /hpf Urine Bacteria Few H None Seen /hpf Urine Mucus Few None Seen Urine Glucose Normal Normal mg/dL Test 10/17/24 17:41 Range/Units Total Bilirubin 0.3 0.2-1.0 mg/dL Aspartate Amino Transferase (AST) 102 H 13-40 U/L Alanine Aminotransferase (ALT) 57 H 7-40 U/L Alkaline Phosphatase 162 H 46-116 U/L B-Type Natriuretic Peptide 179.21 0-100 pg/mL Total Protein 5.2 L 5.7-8.2 g/dL Albumin 2.9 L 3.2-4.8 g/dL Plasma/Serum Blood Alcohol < 3.0 <10 mg/dL Microbiology Date/Time Source Procedure Growth Status 10/18/24 03:02 Sacrum Gram Stain - Final Resulted 10/18/24 03:02 Sacrum Wound Culture - Preliminary Resulted 10/17/24 20:33 Urine - Catheterized Urine Culture - Preliminary Resulted 10/17/24 17:41 Blood Blood Culture - Preliminary Resulted Assessment A 78-year-old female with Sepsis 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 usually sensitive to penicillin based will switch IV zosyn to Ceftriaxone IV CT pelvis without contrast reviewed she has some soft tissue like structure in the iliac area unable to differentiate if it is neoplasm CT abdomen pelvis with contrast ordered, patient has normal creatinine Repeat two sets of blood cultures are negative Continue wound care Continue suprapubic catheter course NSTEMI management deferred to primary PRognosis gaurded plan discussed with Dr Liriano thank you for consult Plan discussed with: JARETH Ortiz MD October 20, 2024 08:54
[2024-10-20 08:57] VITALS: BP 112/52; PULSE 77; RESP 18; TEMP 98; O2SAT 94
[2024-10-20 13:00] VITALS: BP 133/62; PULSE 94; RESP 20; TEMP 97.6; O2SAT 94
--- NOTE | 2024-10-20 15:17 | DVHPN2 ---
Subjective Overnight events noted. Patient denies any complaints today. Blood cultures are positive, urine culture shows MRSA. Changes from previous H/P or p: No Changes Objective Vitals Vital Signs Date Time Temp Pulse Resp B/P (MAP) Pulse Ox O2 Delivery O2 Flow Rate FiO2 10/20/24 08:57 98.0 77 18 112/52 (72) 94 98.0 10/19/24 20:00 Room Air* 0 21 Intake/Output Intake and Output 10/20/24 06:59 Intake Total 1456 ml Output Total 780 ml Balance 676 ml Intake Oral 1356 ml IV Total 100 ml Output Urine Total 780 ml Exam HEENT pupils are reactive Neck is supple CV is S1-S2 regular rate and rhythm Respiratory are clear GI positive bowel sounds positive suprapubic gastric Extremity no edema TRANSITION MGR paraplegia Skin sacral wounds. Medications Current Medications Medications Dose Ordered Sig/Daniel Route Start Time Stop Time Status Last Admin Dose Admin Nitroglycerin 0.4 mg Q5MINP PRN SL 10/17/24 21:45 Morphine Sulfate 2 mg Q30M PRN IV 10/17/24 21:45 Vancomycin HCl 0 ml @ 0 mls/hr UD IV 10/17/24 21:45 Piperacillin Sod/ Tazobactam Sod 100 ml @ 100 mls/hr Q8HR@0200,1000,1800 IV 10/18/24 02:00 10/20/24 11:26 100 MLS/HR Acetaminophen 650 mg Q6HPRN PRN PO 10/17/24 21:45 10/19/24 15:15 650 MG Pantoprazole Sodium 40 mg DAILY IV 10/18/24 10:00 10/20/24 11:23 40 MG Enoxaparin Sodium 40 mg DAILY SC 10/18/24 10:00 10/20/24 11:28 40 MG Atorvastatin Calcium 40 mg HS PO 10/17/24 22:00 10/19/24 21:41 40 MG Aspirin 81 mg DAILY PO 10/18/24 10:00 10/20/24 11:24 81 MG Ondansetron HCl 4 mg Q6HPRN PRN IV 10/17/24 21:45 Diagnostic Test (Pha) 1 strip ACHS 10/17/24 22:00 10/20/24 13:27 1 STRIP Insulin Human Regular ACHS SC 10/17/24 22:00 10/20/24 13:34 3 UNITS Dextrose 50 ml UD PRN IV 10/17/24 21:45 Vancomycin HCl 100 ml @ 200 mls/hr Q12H IV 10/18/24 12:00 10/20/24 13:39 200 MLS/HR Acetaminophen/ Hydrocodone Bitart 1 tab Q4HPRN PRN PO 10/19/24 17:15 10/20/24 11:24 1 TAB Morphine Sulfate 2 mg Q4HPRN PRN IV 10/19/24 17:15 Laboratory Results Laboratory Tests 10/20/24 06:58 Chemistry Test 10/20/24 06:58 Calcium Level 9.2 mg/dL (8.7-10.4) Urinalysis Test 10/17/24 20:33 Urine Color Yellow (Yellow) Urine Clarity Ex.turbid (Clear) Urine pH 5.5 (5.0-9.0) Urine Specific [place] 1.023 (1.001-1.035) Urine Protein 1+ (Negative) H Urine Ketones Negative (Negative) Urine Blood 1+ /uL (Negative) H Urine Nitrite 2+ (Negative) H Urine Bilirubin Negative (Negative) Urine Urobilinogen Normal mg/dL (Negative) Urine Leukocyte Esterase 3+ /uL (Negative) Urine RBC 49 /hpf (0 - 4) Urine WBC Clumps Present /hpf (None Seen) Urine Microscopic WBC 137 /HPF (0-5) H Urine Squamous Epithelial Cells None seen /hpf (<5) Urine Amorphous Crystals Few /hpf (None Seen) Urine Bacteria Few /hpf (None Seen) H Urine Mucus Few (None Seen) Urine Glucose Normal mg/dL (Normal) Microbiology Microbiology Date/Time Source Procedure Growth Status 10/18/24 03:02 Sacrum Gram Stain - Final Resulted 10/18/24 03:02 Sacrum Wound Culture - Preliminary Resulted 10/17/24 20:33 Urine - Catheterized Urine Culture - Final Methicillin Resistant S.aureus Complete 10/17/24 17:41 Blood Blood Culture - Final Pasteurella multocida Complete Assessment/Plan Assessment/Plan 78-year-old female with a known history of paraplegia secondary to staph infection in the past, chronic bed-bound status, chronic suprapubic catheter, hypertension, dyslipidemia, who initially presented to the hospital with altered mental status and hypotension found to have 1. Sepsis secondary to UTI and Gram-negative bacteremia and sacral wound infection 2. Gram-positive UTI showing MRSA 3. Gram-negative bacteremia with a pausturela multocida 4. Coag-negative Staphylococcus in sacral wound 5. Elevated troponin suspect NSTEMI type 2 secondary to sepsis 6. Hypertension 7. Dyslipidemia 8. Hypothyroidism 9. Paraplegia 10. Chronic suprapubic catheter currently complicated UTI 11. Acute on chronic anemia -continue IV antibiotics, infectious disease consultation, wound care. -repeat blood cultures Plan discussed with: Patient My Orders Orders - THIAGO SLOAN MD Procedure Category Date Status Time Blood Culture NARDA 10/19/24 In Process 15:45 Hydrocodone-Acet PHA 10/19/24 In Process 5/325mg Tab ([place] 17:15 Morphine Sulfate PHA 10/19/24 In Process Injection 17:15 Date of Service: October 20, 2024 Billing Provider: THIAGO SLOAN MD Common Visit Codes: NOT BILLABLE THIAGO SLOAN MD October 20, 2024 15:17
[2024-10-20 17:28] VITALS: BP 115/44; PULSE 83; RESP 20; TEMP 99.3; O2SAT 96
[2024-10-20] MEDS ORDERED: cefTRIAXone 2GM/50ML D5W 50 ML IV ONE (17:30)
--- NOTE | 2024-10-20 18:06 | DVH ---
EXAM: CT Abdomen and Pelvis With Intravenous Contrast CLINICAL INDICATION: evaluate soft tissue mass in illiac area/ also any infection TECHNIQUE: Axial computed tomography images of the abdomen and pelvis with intravenous contrast. [facility] CT exam was performed using one or more of the following dose reduction techniques: automated exp osure control, adjustment of the mA and/or kV according to patient size, and/or use of iterative nick nstruction technique. CONTRAST: RADIATION DOSE: CTDIvol = 13.91 mGy, DLP = 824.14 mGy-cm COMPARISON: None FINDINGS: LUNG BASES: Unremarkable. No mass. No consolidation. PLEURAL SPACE: Bilateral pleural effusions. ABDOMEN: LIVER: Hepatomegaly with fatty infiltration. GALLBLADDER AND BILE DUCTS: Unremarkable. No calcified stones. No ductal dilation. PANCREAS: Unremarkable. No mass. No ductal dilation. SPLEEN: Unremarkable. No splenomegaly. ADRENALS: Unremarkable. No mass. KIDNEYS AND URETERS: Unremarkable. No solid mass. No hydronephrosis. STOMACH AND BOWEL: Apparent wall thickening of the distal colon and rectum could be secondary to un derdistention. Underlying mass can not be excluded. Fecal retention in the colon consistent with co nstipation. PELVIS: APPENDIX: No findings to suggest acute appendicitis. BLADDER: Suprapubic catheter in place. REPRODUCTIVE: Unremarkable as visualized. ABDOMEN and PELVIS: INTRAPERITONEAL SPACE: Unremarkable. No free air. No significant fluid collection. BONES/JOINTS: Severe bilateral degenerative changes of the hip joints with significant inflammation . Subtle ill-defined hypodensity in the right hip joint. Findings May suggest severe arthritis with superimposed infection. Extensive posterior fusion of the thoracolumbar spine with secondary degener ative changes. No acute fracture. No dislocation. SOFT TISSUES: Unremarkable. VASCULATURE: Scattered calcified atherosclerotic disease of aorta. No abdominal aortic aneurysm. LYMPH NODES: Unremarkable. No enlarged lymph nodes. OTHER FINDINGS: . IMPRESSION: 1. Apparent wall thickening of the distal colon and rectum could be secondary to underdistention. U nderlying mass can not be excluded. 2. Severe bilateral degenerative changes of the hip joints with significant inflammation. Subtle ill -defined hypodensity in the right hip joint. Findings May suggest severe arthritis with superimposed infection. 3. Hepatomegaly with fatty infiltration. 4. Fecal retention in the colon consistent with constipation.
[2024-10-20 20:00] VITALS: PULSE 78
[2024-10-20] MEDS: cefTRIAXone 2GM/50ML D5W 50 ML IV ONE (20:19)
[2024-10-20] MEDS: ceFAZolin 1GM/50ML 50 ML IV ONE (20:34)
[2024-10-20] MEDS: cefTRIAXone 1GM/50ML D5W 100 ML IV ONE (20:37)
[2024-10-21] VITALS (7 sets, daily range): BP systolic 109–127; BP diastolic 39–61; PULSE 61–86; RESP 16–18; TEMP 98.1–99.5; O2SAT 93–97
[2024-10-21 06:35] LABS: Basophils # (auto) 0 10 ^3/uL (0-0.2); Basophils % (auto) 0.2 % (0.0-2.0); Eosinophils # (auto) 0.1 10 ^3/uL (0-0.8); Eosinophils % (auto) 1.5 % (0.0-7.0); Lymphocytes # (auto) 0.6 10 ^3/uL (0.4-5.4); Monocytes # (auto) 0.6 10 ^3/uL (0-1.3); Neutrophils # (auto) 6.1 10 ^3/uL (1.6-8.6); White Blood Cell 7.4 10^3/uL (4.4-10.8)
[2024-10-21 06:37] LABS: Hematocrit 24.4 % (36.0-46.0); Hemoglobin 8.3 g/dL (12.2-16.2); Lymphocytes % (auto) 7.7 % (10.0-50.0); Mean Corpuscular Hemoglobin 26.8 pg (28.0-32.0); Mean Corpuscular Hgb Conc. 34.2 g/dL (32.0-36.0); Mean Corpuscular Volume 78.5 fL (80.0-100.0); Monocytes % (auto) 8.2 % (0.0-12.0); Neutrophils % (auto) 82.4 % (37.0-80.0); Platelet Count (auto) 149 10^3/uL (140-450); Red Cell Distribution Width 17.5 % (11.8-14.3)
[2024-10-21] MEDS: IOHEXOL 300 MG/ML 100ML BOTTLE IJ ONE (07:46)
[2024-10-21] MEDS: cefTRIAXone 2GM/50ML D5W 50 ML IV SCH (09:45)
--- NOTE | 2024-10-21 13:04 | DVHPN2 ---
Progress Note - Dictate Date Seen: October 21, 2024 Medical Necessity Reason Pt with a Central, PICC or Fol: No Subjective Patient complaining of itchy eyes and dry nose. She has pets, Cats vital signs Vital Sign Date Time Temp Pulse Resp B/P (MAP) Pulse Ox O2 Delivery O2 Flow Rate FiO2 10/21/24 09:00 98.7 79 18 110/56 (74) 96 98.7 10/21/24 08:00 Room Air* 0 21 Total Intake and Output 10/20/24 10/20/24 10/21/24 15:00 23:00 07:00 Intake Total 200 ml 770 ml 200 ml Output Total 600 ml 625 ml Balance 200 ml 170 ml -425 ml medications Current Medications Medications Dose Ordered Sig/Daniel Route Start Time Stop Time Status Last Admin Dose Admin Nitroglycerin 0.4 mg Q5MINP PRN SL 10/17/24 21:45 Morphine Sulfate 2 mg Q30M PRN IV 10/17/24 21:45 Vancomycin HCl 0 ml @ 0 mls/hr UD IV 10/17/24 21:45 Acetaminophen 650 mg Q6HPRN PRN PO 10/17/24 21:45 10/19/24 15:15 650 MG Pantoprazole Sodium 40 mg DAILY IV 10/18/24 10:00 10/21/24 09:45 40 MG Enoxaparin Sodium 40 mg DAILY SC 10/18/24 10:00 10/21/24 09:45 40 MG Atorvastatin Calcium 40 mg HS PO 10/17/24 22:00 10/20/24 23:22 40 MG Aspirin 81 mg DAILY PO 10/18/24 10:00 10/21/24 09:45 81 MG Ondansetron HCl 4 mg Q6HPRN PRN IV 10/17/24 21:45 Diagnostic Test (Pha) 1 strip ACHS 10/17/24 22:00 10/21/24 11:31 1 STRIP Insulin Human Regular ACHS SC 10/17/24 22:00 10/21/24 11:33 3 UNITS Dextrose 50 ml UD PRN IV 10/17/24 21:45 Vancomycin HCl 100 ml @ 200 mls/hr Q12H IV 10/18/24 12:00 10/21/24 00:24 200 MLS/HR Acetaminophen/ Hydrocodone Bitart 1 tab Q4HPRN PRN PO 10/19/24 17:15 10/20/24 17:00 1 TAB Morphine Sulfate 2 mg Q4HPRN PRN IV 10/19/24 17:15 Ceftriaxone Sodium/Dextrose 50 ml @ 50 mls/hr DAILY IV 10/21/24 10:00 10/21/24 09:45 50 MLS/HR objective General alert and oriented HEENT: Atraumatic Neck: No swelling Lungs: Equal air entry and clear to auscultation Cardiovascular: S2 heard no murmur Abdomen: Soft nontender, suprapubic catheter Neuro: Alert and oriented, paraplegia Psych: Normal mood and affect Skin decubitus wound laboratory and microbiology Laboratory Tests 10/21/24 05:39 10/20/24 06:58 Test 10/20/24 06:58 Range/Units Serum Glucose 107 H 74-106 mg/dL Assessment/Plan A 78-year-old female with Sepsis 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 usually sensitive to penicillin based on Ceftriaxone IV Patient has pets in her home possibly partially visualized secondary to animal exposure. Advised to take care/avoid scratches or licking from the pet She is clinically stable, we will taper her antibiotics to oral Augmentin 875 b.i.d. to complete a course of 10 days MRSA is colonized in the wound and urine Reviewed CT abdomen pelvis with contrast showed thickening in the distal part of the colon, discussed with Dr. Liriano to advise follow-up with GI as outpatient. As Radiology reported malignancy can not be excluded No evidence of abscess noted CT pelvis without contrast reviewed she has some soft tissue like structure in the iliac area unable to differentiate if it is neoplasm Repeat two sets of blood cultures are negative Continue wound care Continue suprapubic catheter course NSTEMI management deferred to primary Total time 50 minutes spent in encounter. Plan discussed with Dr Liriano Thank you for consult Dietary Evaluation Review Comments: 1. Bryce 1pk BID (ordered per [facility] protocol) 2. Vit C 500mg BID, zinc sulfate 220mg BID x 10days, MVI w/ minerals 1 tab daily 3. Conitnue current POC Expected Outcomes/Goals: sacral PU to improve fu 3-5 days Plan discussed with: JARETH Ortiz MD October 21, 2024 13:04
[2024-10-21] MEDS ORDERED: AUG875T PO (13:47)
--- NOTE | 2024-10-21 16:11 | DVHDS2 ---
Discharge Summary Date of Admission October 17, 2024 at 21:51 Date of Discharge: October 21, 2024 Labs/Diagnostic Data: Laboratory Results Test 10/21/24 11:19 10/21/24 11:05 10/21/24 05:39 10/20/24 06:58 POC Glucose 179 mg/dl (70-106) Vancomycin Level Trough 20.7 ug/mL (5-10) White Blood Count 7.4 10^3/uL (4.4-10.8) Red Blood Count 3.10 10^6/uL (4.0-5.20) Hemoglobin 8.3 g/dL (12.2-16.2) Hematocrit 24.4 % (36.0-46.0) Mean Corpuscular Volume 78.5 fL (80.0-100.0) Mean Corpuscular Hemoglobin 26.8 pg (28.0-32.0) Mean Corpuscular Hemoglobin Concent 34.2 g/dL (32.0-36.0) Red Cell Distribution Width 17.5 % (11.8-14.3) Platelet Count 149 10^3/uL (140-450) Mean Platelet Volume 9.2 fL (6.9-10.8) Neutrophils (%) (Auto) 82.4 % (37.0-80.0) Lymphocytes (%) (Auto) 7.7 % (10.0-50.0) Monocytes (%) (Auto) 8.2 % (0.0-12.0) Eosinophils (%) (Auto) 1.5 % (0.0-7.0) Basophils (%) (Auto) 0.2 % (0.0-2.0) Neutrophils # (Auto) 6.1 10 ^3/uL (1.6-8.6) Lymphocytes # (Auto) 0.6 10 ^3/uL (0.4-5.4) Monocytes # (Auto) 0.6 10 ^3/uL (0-1.3) Eosinophils # (Auto) 0.1 10 ^3/uL (0-0.8) Basophils # (Auto) 0 10 ^3/uL (0-0.2) Nucleated Red Blood Cells 0.0 % Creatinine 0.69 mg/dL (0.550-1.02) Glomerular Filtration Rate Calc 90 mL/min (>90) Sodium Level 139 mmol/L (136-145) Potassium Level 4.2 mmol/L (3.5-5.1) Chloride Level 107 mmol/L (98-107) Carbon Dioxide Level 24 mmol/L (20-31) Anion Gap 8 (5-15) Blood Urea Nitrogen 40 mg/dL (9-23) BUN/Creatinine Ratio 52.6 (10.0-20.0) Serum Glucose 107 mg/dL (74-106) Calcium Level 9.2 mg/dL (8.7-10.4) Test 10/19/24 06:39 10/18/24 12:51 10/18/24 03:39 10/17/24 22:00 Hemoglobin A1c 6.5 % A1C (<5.7) Magnesium Level 1.6 mg/dL (1.6-2.6) Triglycerides Level 106 mg/dL (< 150) Cholesterol Level 65 mg/dL (< 200) LDL Cholesterol 29 mg/dL (< 100) HDL Cholesterol < 5 mg/dL (40-59) Thyroid Stimulating Hormone (TSH) 1.66 uIU/mL (0.55-4.78) Troponin I High Sensitivity 47 ng/L (</=34) Lactic Acid Level 1.6 mmol/L (0.4-2.0) Prothrombin Time 14.3 sec (9.3-11.8) Prothrombin Time INR 1.39 (0.9-1.15) Test 10/17/24 20:33 10/17/24 17:41 Urine Color Yellow (Yellow) Urine Clarity Ex.turbid (Clear) Urine pH 5.5 (5.0-9.0) Urine Specific [place] 1.023 (1.001-1.035) Urine Protein 1+ (Negative) Urine Ketones Negative (Negative) Urine Blood 1+ /uL (Negative) Urine Nitrite 2+ (Negative) Urine Bilirubin Negative (Negative) Urine Urobilinogen Normal mg/dL (Negative) Urine Leukocyte Esterase 3+ /uL (Negative) Urine RBC 49 /hpf (0 - 4) Urine WBC Clumps Present /hpf (None Seen) Urine Microscopic WBC 137 /HPF (0-5) Urine Squamous Epithelial Cells None seen /hpf (<5) Urine Amorphous Crystals Few /hpf (None Seen) Urine Bacteria Few /hpf (None Seen) Urine Mucus Few (None Seen) Urine Glucose Normal mg/dL (Normal) Total Bilirubin 0.3 mg/dL (0.2-1.0) Aspartate Amino Transferase (AST) 102 U/L (13-40) Alanine Aminotransferase (ALT) 57 U/L (7-40) Alkaline Phosphatase 162 U/L (46-116) B-Type Natriuretic Peptide 179.21 pg/mL (0-100) Total Protein 5.2 g/dL (5.7-8.2) Albumin 2.9 g/dL (3.2-4.8) Plasma/Serum Blood Alcohol < 3.0 mg/dL (<10) Other Laboratory Tests 10/21/24 05:39 10/20/24 06:58 Brief Hx & Hospital Course: 78-year-old female with a 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 Patient found to have Gram- positive UTI showing MRSA as well as Gram-negative bacteremia with positive now multocida. The patient was treated with IV antibiotics. Infectious Disease was consulted who recommended CT abdominal pelvis which shows evidence of colonic bowel and rectal wall questionable thickening secondary to under distention but underlying more scan of the excluded. Outpatient follow up with GI was recommended. Patient will be discharged home on p.o. antibiotics. The patient was explained current plan of care, she understands verbalized understanding and agreeable to plan. 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 Sepsis secondary to UTI and Gram-negative bacteremia and sacral wound infection 2. Gram-positive UTI showing MRSA 3. Gram-negative bacteremia with a pausturela multocida 4. Coag-negative Staphylococcus in sacral wound 5. Elevated troponin suspect NSTEMI type 2 secondary to sepsis 6. Hypertension 7. Dyslipidemia 8. Hypothyroidism 9. Paraplegia 10. Chronic suprapubic catheter currently complicated UTI 11. Acute on chronic anemia 12. Distal colonic wall and rectal thickening underlying mass can not be excluded, outpatient follow up with the GI gastro group in 1-2 weeks for colonoscopy as underlying malignancy can not be excluded. Discharge Disposition: Home with Health Services SNF Discharge Will this Physician continue t: No Discharge Instruct/Medications Diet: Cardiac 2g Na,low cholest Diet comment: 1999 ADA diet Activity: See Comment Activity comment: The patient is wheelchair-bound Follow Up/Referral: Follow up with the PCP and Infectious Disease in 1-2 weeks Follow up with the gastro group in 1-2 weeks for outpatient colonoscopy to rule out any colonic or rectal mass. Medications: Augmentin as prescribed, resume home medications Discharge Statement: "Patient was advised to return to the ER or call 911 if any headaches, dizziness, shortness of breath, chest pain, abdominal pain, bleeding, fevers, or worsening of medical condition. Patient was counseled about treatment plan, medications, possible side effects, patientverbalized understanding. All questions were answered to the best of my ability. 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 Sepsis secondary to UTI and Gram-negative bacteremia and sacral wound infection 2. Gram-positive UTI showing MRSA 3. Gram-negative bacteremia with a pausturela multocida 4. Coag-negative Staphylococcus in sacral wound 5. Elevated troponin suspect NSTEMI type 2 secondary to sepsis 6. Hypertension 7. Dyslipidemia 8. Hypothyroidism 9. Paraplegia 10. Chronic suprapubic catheter currently complicated UTI 11. Acute on chronic anemia 12. Distal colonic wall and rectal thickening underlying mass can not be excluded, outpatient follow up with the GI gastro group in 1-2 weeks for colonoscopy as underlying malignancy can not be excluded. Date of Service: October 21, 2024 Billing Provider: THIAGO SLOAN MD Common Visit Codes: NOT BILLABLE THIAGO SLOAN MD October 21, 2024 16:11
[2024-10-21] MEDS ORDERED: VANCOMYCIN 500mg/100mL 100 ML IV SCH (20:00)
== END 2024-10-21 19:30 | disposition home or self-care (01) | DRG 871 ==
LOC: ER 17:28 → EDBD 17:28 → OVERFLOW 21:51 → TELE-WESTW 21:53
PROVIDERS: ADMIT Nurse Practitioner Family; ATTEND Nurse Practitioner Family
PROC: 02HV33Z Insertion of Infusion Device into Superior Vena Cava, Percutaneous Approach (ICD-10-PCS; principal; 2024-10-17)
DX: A41.50 Gram-negative sepsis, unspecified (principal); G93.41 Metabolic encephalopathy; I21.A1 Myocardial infarction type 2; N39.0 Urinary tract infection, site not specified; G82.20 Paraplegia, unspecified; A28.0 Pasteurellosis; I10 Essential (primary) hypertension; J44.9 Chronic obstructive pulmonary disease, unspecified; E78.5 Hyperlipidemia, unspecified; E11.65 Type 2 diabetes mellitus with hyperglycemia; E03.9 Hypothyroidism, unspecified; D64.9 Anemia, unspecified; L89.152 Pressure ulcer of sacral region, stage 2; S31.000A Unspecified open wound of lower back and pelvis without penetration into retroperitoneum, initial encounter; X58.XXXA Exposure to other specified factors, initial encounter; A49.02 Methicillin resistant Staphylococcus aureus infection, unspecified site; E66.9 Obesity, unspecified; Z74.01 Bed confinement status; Z88.8 Allergy status to other drugs, medicaments and biological substances; Z79.899 Other long term (current) drug therapy; Z79.891 Long term (current) use of opiate analgesic; Z79.1 Long term (current) use of non-steroidal anti-inflammatories (NSAID); Z79.84 Long term (current) use of oral hypoglycemic drugs; Z82.49 Family history of ischemic heart disease and other diseases of the circulatory system; Z83.3 Family history of diabetes mellitus; Z93.59 Other cystostomy status; Y93.89 Activity, other specified; Y92.89 Other specified places as the place of occurrence of the external cause; Y99.8 Other external cause status; Z68.25 Body mass index [BMI] 25.0-25.9, adult
CPT/HCPCS: 36415; 36556; 70450; 71045; 72192; 74177; 80048; 80053; 80061; 80202; 80320; 81001; 82565; 82962; 83036; 83605; 83735; 83880; 84443; 84484; 85025; 85610; 86850; 86900; 86901; 87040; 87076; 87077; 87086; 87088; 87186; 87205; 93005; 93306; 96365; 99291; G0378; J1815; J2470; J2543

== ENCOUNTER 2025-01-21 12:15 | Inpatient (IN) | payer OTHER ==
[~2025-01-21] VITALS: Ht 167.6 cm; Wt 64.8 kg
[2025-01-21] VITALS (8 sets, daily range): BP systolic 134–164; BP diastolic 60–81; PULSE 62–86; RESP 10–23; TEMP 98.4; O2SAT 95–99
[~2025-01-21 12:15] MED LIST changes: +AUG875T PO; +GABA-339 PO; +GLIP5TAB21 PO; -LEVO88TA4 OR; +LEVO88TA4 PO; -MAGN400C3 PO; +MAGN400T40 PO; +METF-370 PO; -METF500S3 PO; +PANT40T PO; -PANT40TA2 PO; +SIMV40TA18 PO; -TRAM-297 OR; +TRAM50TA2 PO
[2025-01-21] MEDS ORDERED: diphenhdrAMINE HCL 50 MG/1 ML VL IV ONE (12:30)
[2025-01-21] MEDS ORDERED: FAMOTIDINE INJECTION 40 MG in SODIUM CHL 0.9% 100 ML IV ONE (12:30)
--- NOTE | 2025-01-21 12:40 | ED.PDOC ---
History of Present Illness HPI Comments 79-year-old female brought in by private car, referred by urgent care for evaluation of throat and tongue swelling, onset this morning. Patient states she woke up this morning feeling like her throat was closing, was having difficulty swallowing, and noted that her tongue was swollen. She denies any new medications, products, food or new environmental exposures. She does not take an KATERINA-inhibitor. She states around 2 weeks ago she woke up with lip edema which resolved after taking Benadryl. She denies any pain, difficulty breathing, nausea or vomiting, but states the left side of her throat feels more swollen than the right. At urgent Care, IV Benadryl and Pepcid were administered. Chief Complaint: Allergic Reaction Time Seen by MD: 12:26 Primary Care Provider: Ry Allergies: Coded Allergies: Gentamicin (Verified Adverse Reaction, Mild, 02/24/24) hearing Home Meds Active Scripts Amoxicillin & Pot Clavulanate (AUGMENTIN TABLET) 875 Mg Tb, 875 MG PO BID for 10 Days, #20 TAB Prov:THIAGO SLOAN MD 10/21/24 Reported Medications Glipizide (Glipizide) 5 Mg Tab, 1 TAB PO BID 10/18/24 Levothyroxine Sodium (Levothyroxine Sodium) 88 Mcg Tab, 1 TAB PO DAILY, #30 TAB 5 Refills 10/18/24 Magnesium Oxide (MAGNESIUM OXIDE) 400 Mg Tab, 400 MG PO HS, TAB 10/18/24 Tramadol Hcl (Tramadol Hcl) 50 Mg Tab, 50 MG PO TID, TAB 10/18/24 Pantoprazole Sodium Sesquihydr (Pantoprazole Sodium) 40 Mg Tab, 1 TAB PO DAILY 10/18/24 Simvastatin (Simvastatin) 40 Mg Tab, 1 TAB PO 10/18/24 Metformin Hydrochloride (Metformin Hcl) 500 Mg Tab, 1 TAB PO BID 10/18/24 Gabapentin (Gabapentin) 600 Mg Tab, 1 TAB PO TID 10/18/24 Oxycodone W/ Acetaminophen (Percocet 5/325MG) 1 Tab Tb, 1 TAB PO Q4HPRN PRN for PAIN SCALE 1 THRU 6, #60 TAB 07/24/19 Zinc Sulfate (Zinc Sulfate) 220 Mg Cap, 50 MG PO DAILY for 30 Days, MG 07/24/19 Ascorbic Acid (Vitamin C) 1,000 Mg Tab, 1000 MG PO, TAB 2/15/20 Cyanocobalamin (B12) 1,000 Mcg Tab, 500 MCG PO DAILY, TAB 07/24/19 Cranberry Extract (CRANBERRY) 600 Mg Tab, 600 MG OR DAILY, TAB 07/24/19 Cholecalciferol (VITAMIN D3) 2,000 Unit Tab, 1000 UNIT OR, TAB 07/24/19 [place]-3 Fatty Acids ([place] 3 500 500 mg) 1 Cap Cap, 2 CAP PO DAILY, CAP 07/24/19 Biotin (Vitamin H) (Biotin Maximum) 10,000 Mcg Tab, 48769 MCG PO DAILY, TAB 07/24/19 Cyclobenzaprine Hcl (Cyclobenzaprine Hcl) 10 Mg Tab, 10 MG PO TID, TAB 07/24/19 Simvastatin (Simvastatin) 20 Mg Tab, 20 MG OR DAILY 02/19/10 Amitriptyline Hcl (Amitriptyline Hcl) 50 Mg Tab, 50 MG OR HS 02/19/10 Quinapril-Hydrochlorothiazide (Quinapril/Hydrochlorothia) 1 Tab Tab, 2 TAB OR DAILY 02/19/10 [Becki] No Conflict Check 02/18/10 Mode of Arrival: Wheelchair Past Medical History PAST MEDICAL HISTORY: DM, HTN, Thyroid Surgical History: Tonsillectomy Surgical History (Other): Coccygeal wound debridement [employer] History: 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 Moist mucous membranes. Moderate tongue edema. Unable to visualize posterior pharynx. No oral mucosal lesions or gingival edema noted.) Neck: Full Range of Motion, Non-Tender, Normal Inspection, Other (Left greater than right submandibular and anterolateral neck soft tissue swelling. No tenderness or discoloration.) Respiratory: Lungs Clear, No Accessory Muscle Use, No Respiratory Distress, Normal Breath Sounds Cardiovascular: No JVD, Regular Rate/Rhythm Breast Exam: Deferred Gastrointestinal: Non Tender, Soft Genitalia: Deferred Pelvic: Deferred Rectal: Deferred Extremities: Normal inspection, Normal range of motion, Non-tender, No pedal edema Neurologic: Alert (Oriented x4), Normal Affect, Normal Mood, Other (Ambulatory) Cerebellar Function: NOT DONE Reflexes: NOT DONE Skin: Dry, Normal Color, Warm Lymphatic: NOT DONE Was a procedure done? Was a procedure done?: No Differential Dx Considerations may include: Allergic reaction/angioedema, infection such as adenitis, neoplasm, among others X-Ray, Labs, Meds, VS Vital Signs Date Time Temp Pulse Resp B/P (MAP) Pulse Ox O2 Delivery O2 Flow Rate FiO2 01/21/25 13:30 98.0 59 17 141/64 (89) 96 98.0 01/21/25 13:30 Room Air* 0 21 01/21/25 12:17 97.9 73 18 155/79 97 97.9 Lab Test 01/21/25 13:05 Range/Units White Blood Count 8.8 4.4-10.8 10^3/uL Red Blood Count 4.22 4.0-5.20 10^6/uL Hemoglobin 11.4 L 12.2-16.2 g/dL Hematocrit 34.4 L 36.0-46.0 % Mean Corpuscular Volume 81.7 80.0-100.0 fL Mean Corpuscular Hemoglobin 27.0 L 28.0-32.0 pg Mean Corpuscular Hemoglobin Concent 33.0 32.0-36.0 g/dL Red Cell Distribution Width 17.2 H 11.8-14.3 % Platelet Count 302 140-450 10^3/uL Mean Platelet Volume 9.5 6.9-10.8 fL Neutrophils (%) (Auto) 91.2 H 37.0-80.0 % Lymphocytes (%) (Auto) 7.3 L 10.0-50.0 % Monocytes (%) (Auto) 0.9 0.0-12.0 % Eosinophils (%) (Auto) 0.4 0.0-7.0 % Basophils (%) (Auto) 0.2 0.0-2.0 % Neutrophils # (Auto) 8.1 1.6-8.6 10 ^3/uL Lymphocytes # (Auto) 0.6 0.4-5.4 10 ^3/uL Monocytes # (Auto) 0.1 0-1.3 10 ^3/uL Eosinophils # (Auto) 0 0-0.8 10 ^3/uL Basophils # (Auto) 0 0-0.2 10 ^3/uL Nucleated Red Blood Cells 0.0 % Sodium Level 140 136-145 mmol/L Potassium Level 4.3 3.5-5.1 mmol/L Chloride Level 102 98-107 mmol/L Carbon Dioxide Level 29 20-31 mmol/L Anion Gap 9 5-15 Blood Urea Nitrogen 19 9-23 mg/dL Creatinine 0.57 0.550-1.02 mg/dL Glomerular Filtration Rate Calc 94 >90 mL/min BUN/Creatinine Ratio 33.3 H 10.0-20.0 Serum Glucose 136 H 74-106 mg/dL Calcium Level 9.1 8.7-10.4 mg/dL Current Medications Medications (Trade) Dose Ordered Sig/Daniel Route Start Time Stop Time Status Last Admin Dexamethasone Sodium Phosphate (Decadron Injection) 10 mg ONCE ONCE IV 01/21/25 12:30 01/21/25 12:31 DC 01/21/25 13:03 PROCEDURE(s): NKICT - NECK WITHOUT CONTRAST REASON: L neck/tongue/throat swelling ORDER NUMBER(s): [id number], ACCESSION NUMBER(s): [id number] EXAM: CT NECK WITHOUT CONTRAST INDICATION: L neck/tongue/throat swelling Exam Date: 01/21/2025 12:36 PM COMPARISON: CT HEAD WITHOUT CONTRAST on DOS: 10/17/24, HEAD WITHOUT CONTRAST on DOS: 07/23/19 TECHNIQUE: CT of the neck without intravenous contrast. RADIATION DOSE: CTDIvol: 18.93 mGy, DLP: 18.93 mGy*cm FINDINGS: There is no evidence of cervical mass lesion, pathologically enlarged lymph nodes or fluid collection. The fat planes of the neck appear intact. Moderate to severe diffuse narrowing of the oropharynx. The parotid, submandibular and thyroid glands are unremarkable. The vascular structures of the neck appear patent. The visualized lung apices are clear. The limited visualized portions of the brain are unremarkable. The osseous structures are unremarkable. IMPRESSION: Moderate to severe diffuse narrowing of the oropharynx. Findings could represent angioedema. Clinical correlation advised. X-Ray, Labs, Meds, VS Comment 79-year-old history of hypertension, diabetes and thyroid disease referred by urgent care for evaluation of unprovoked throat and tongue swelling noted on waking up this morning. Vitals remarkable for BP 155/79 Exam remarkable for tongue edema, left greater than right submandibular and anterolateral neck soft tissue swelling Rhythm strip independently interpreted by me: Sinus rhythm, rate 73, no ectopy. CT neck soft tissue IMPRESSION: Moderate to severe diffuse narrowing of the oropharynx. Findings could represent angioedema. Clinical correlation advised. CBC, basic metabolic panel remarkable Patient was treated with IV Pepcid and Benadryl at urgent Care Patient received the following in the ED: Dexamethasone 10 mg IV On re-evaluation, there has been no significant change. Vitals were stable. Plan is to admit the patient for respiratory monitoring and further treatment of possible angioedema Time of 1ST Reevaluation: 13:00 Reevaluation 1ST: Unchanged Patient Education/Counseling: Diagnosis, Treatment, Need For Follow Up Family Education/Counseling: No Family Present SEPSIS Sepsis Screen Date sepsis recognized/suspect: Jan 21, 2025 Time Sepsis recognized/suspect: 1218 Recent Procedure: No On Antibiotic Therapy: No Respiratory Rate >20: No Heart Rate >90: No Temp<36 C (96.8 F) or >38.3 C: No SBP <90 or MAP <65 mmHG: No New Acute Mental Status Change: No Is the patient on CPAP, BIPAP,: No Physician Orders Neck Without Contrast (01/21/25 12:35) Vital Signs Date Time Temp Pulse Resp B/P (MAP) Pulse Ox O2 Delivery O2 Flow Rate FiO2 01/21/25 13:30 98.0 59 17 141/64 (89) 96 98.0 01/21/25 13:30 Room Air* 0 21 01/21/25 12:17 97.9 73 18 155/79 97 97.9 Laboratory Tests Test 01/21/25 13:05 White Blood Count 8.8 10^3/uL (4.4-10.8) Medications Medications Dose Ordered Sig/Daniel Route Start Time Stop Time Status Last Admin Dose Admin Dexamethasone Sodium Phosphate 10 mg ONCE ONCE IV 01/21/25 12:30 01/21/25 12:31 DC 01/21/25 13:03 Departure 1 Departure Time of Disposition: 15:30 Impression: Primary Impression: Angioedema Qualified Codes: T78.3XXA - Angioneurotic edema, initial encounter Disposition: 09 ADMITTED INPATIENT Admit to: Tele Condition: Guarded Critical Care Note Critical Care Time?: No Stability Stability form required: No Heart Score Heart Score: Heart Score Response (Comments) Value History N/A 0 EKG N/A 0 Age N/A 0 Risk Factors N/A 0 Troponin N/A 0 Total 0 [place] GRANGER MD Jan 21, 2025 12:40
[2025-01-21 13:40] LABS: Hematocrit 34.4 % (36.0-46.0); Hemoglobin 11.4 g/dL (12.2-16.2); Mean Corpuscular Hemoglobin 27.0 pg (28.0-32.0); Mean Corpuscular Volume 81.7 fL (80.0-100.0); Nucleated Red Blood Cells % 0.0 %
--- NOTE | 2025-01-21 13:41 | DVH ---
EXAM: CT NECK WITHOUT CONTRAST INDICATION: L neck/tongue/throat swelling Exam Date: 01/21/2025 12:36 PM COMPARISON: CT HEAD WITHOUT CONTRAST on DOS: 10/17/24, HEAD WITHOUT CONTRAST on DOS: 07/23/19 TECHNIQUE: CT of the neck without intravenous contrast. RADIATION DOSE: CTDIvol: 18.93 mGy, DLP: 18.93 mGy*cm FINDINGS: There is no evidence of cervical mass lesion, pathologically enlarged lymph nodes or fluid collection . The fat planes of the neck appear intact. Moderate to severe diffuse narrowing of the oropharynx. The parotid, submandibular and thyroid glands are unremarkable. The vascular structures of the neck appear patent. The visualized lung apices are clear. The limited visualized portions of the brain are unremarkable. The osseous structures are unremarkable. IMPRESSION: Moderate to severe diffuse narrowing of the oropharynx. Findings could represent angioedema. Clinica l correlation advised.
[2025-01-21 13:43] LABS: Chloride 102 mmol/L (98-107); Potassium 4.3 mmol/L (3.5-5.1); Sodium 140 mmol/L (136-145)
[2025-01-21 13:44] LABS: Anion Gap 9 (5-15); Calcium 9.1 mg/dL (8.7-10.4); Carbon Dioxide 29 mmol/L (20-31)
[2025-01-21 13:49] LABS: BUN/Creatinine Ratio 33.3 (10.0-20.0); Blood Urea Nitrogen 19 mg/dL (9-23); Glucose 136 mg/dL (74-106)
[2025-01-21] MEDS ORDERED: ACETAMINOPHEN 325 MG TAB PO PRN (17:00)
[2025-01-21] MEDS ORDERED: diphenhdrAMINE HCL 50 MG/1 ML VL IV PRN (17:00)
[2025-01-21] MEDS ORDERED: MORPHINE SULFATE INJ 2 MG/ml SYRG IV PRN ×2 (17:00)
[2025-01-21] MEDS ORDERED: ONDANSETRON HCL 4 MG/2 ML VIAL IV PRN (17:00)
[2025-01-21] MEDS ORDERED: NITROGLYCERIN 0.4 MG SL TAB SL PRN (17:00)
[2025-01-21] MEDS: SODIUM CHLORIDE 0.9% 1,000 ML IV SCH (18:36)
[2025-01-21] MEDS: HYDROcodone-ACET 5/325MG TAB PO PRN (18:36)
[2025-01-21] MEDS: ENOXAPARIN SOD 40 MG/0.4 ML SYRINGE SC SCH (18:47)
[2025-01-21] MEDS: FAMOTIDINE (10MG/ML) 2ML VL IV SCH (22:04)
[2025-01-21] MEDS: methylPREDNISolone SOD SUCC 40 MG/ML VL IV SCH (22:04)
[2025-01-21] MEDS ORDERED: DEXTROSE (50%) 50ML SYRG IV PRN (23:00)
--- NOTE | 2025-01-21 23:06 | DVHHP2 ---
Admitting Diagnosis: Angioedema History of Present Illness History Source: Patient Exam Limitations: No limitations HPI Mrs. Connie Kirkland is a 79-year-old female with a history of DM2, HTN, paraplegia who presents with a chied complaint of throat and tongue swelling, onset this morning. Patient states she woke up this morning feeling like her throat was closing, was having difficulty swallowing, and noted that her tongue was swollen. She denies any new medications, products, food or new environmental exposures. She does not take an KATERINA-inhibitor. She states around 2 weeks ago she woke up with lip edema which resolved after taking Benadryl. She denies any pain, difficulty breathing, nausea or vomiting, but states the left side of her throat feels more swollen than the right. At urgent Care, IV Benadryl and Pepcid were administered. Patient reports she is feeling better, and is able to swallow. Patient denies headaches, blurry vision, dizziness, dyspnea, nausea, vomiting. Home Meds Active Scripts Amoxicillin & Pot Clavulanate (AUGMENTIN TABLET) 875 Mg Tb, 875 MG PO BID for 10 Days, #20 TAB Prov:THIAGO SLOAN MD 10/21/24 Reported Medications Glipizide (Glipizide) 5 Mg Tab, 1 TAB PO BID 10/18/24 Levothyroxine Sodium (Levothyroxine Sodium) 88 Mcg Tab, 1 TAB PO DAILY, #30 TAB 5 Refills 10/18/24 Magnesium Oxide (MAGNESIUM OXIDE) 400 Mg Tab, 400 MG PO HS, TAB 10/18/24 Tramadol Hcl (Tramadol Hcl) 50 Mg Tab, 50 MG PO TID, TAB 10/18/24 Pantoprazole Sodium Sesquihydr (Pantoprazole Sodium) 40 Mg Tab, 1 TAB PO DAILY 10/18/24 Simvastatin (Simvastatin) 40 Mg Tab, 1 TAB PO 10/18/24 Metformin Hydrochloride (Metformin Hcl) 500 Mg Tab, 1 TAB PO BID 10/18/24 Gabapentin (Gabapentin) 600 Mg Tab, 1 TAB PO TID 10/18/24 Oxycodone W/ Acetaminophen (Percocet 5/325MG) 1 Tab Tb, 1 TAB PO Q4HPRN PRN for PAIN SCALE 1 THRU 6, #60 TAB 07/24/19 Zinc Sulfate (Zinc Sulfate) 220 Mg Cap, 50 MG PO DAILY for 30 Days, MG 2/15/20 Ascorbic Acid (Vitamin C) 1,000 Mg Tab, 1000 MG PO, TAB 07/24/19 Cyanocobalamin (B12) 1,000 Mcg Tab, 500 MCG PO DAILY, TAB 07/24/19 Cranberry Extract (CRANBERRY) 600 Mg Tab, 600 MG OR DAILY, TAB 07/24/19 Cholecalciferol (VITAMIN D3) 2,000 Unit Tab, 1000 UNIT OR, TAB 07/24/19 [place]-3 Fatty Acids ([place] 3 500 500 mg) 1 Cap Cap, 2 CAP PO DAILY, CAP 07/24/19 Biotin (Vitamin H) (Biotin Maximum) 10,000 Mcg Tab, 75685 MCG PO DAILY, TAB 07/24/19 Cyclobenzaprine Hcl (Cyclobenzaprine Hcl) 10 Mg Tab, 10 MG PO TID, TAB 07/24/19 Simvastatin (Simvastatin) 20 Mg Tab, 20 MG OR DAILY 02/19/10 Amitriptyline Hcl (Amitriptyline Hcl) 50 Mg Tab, 50 MG OR HS 02/19/10 Quinapril-Hydrochlorothiazide (Quinapril/Hydrochlorothia) 1 Tab Tab, 2 TAB OR DAILY 02/19/10 [[place]] No Conflict Check 02/18/10 Past Medical History Cardiac: HTN, Hyperlipidemia Endocrine: NIDDM Others paraplegia x 15 years ago, suprapubic catheter, stage IV sacral decubitus ulcer Patient Family History: Diabetes mellitus G8 MOTHER FH: myocardial infarction G8 MOTHER G8 FATHER Smoker: No Hx (Negative) Alocohol: None Drugs: None Domestic Violence: Neg Review of Systems Constitutional: No symptom reported Ears, Nose, & Throat: No symptom reported Eyes: No symptom reported Pulmonary/Respiratory: No symptom reported Cardiovascular: No symptom reported Gastrointestinal: No symptom reported Genitourinary: No symptom reported Musculoskeletal: No symptom reported Skin: No symptom reported Psychiatric: No symptom reported Endocrine: No symptom reported Hemotologic/Lymphatic: No symptom reported H&P Exam Vital Signs Vital Signs Date Time Temp Pulse Resp B/P (MAP) Pulse Ox O2 Delivery O2 Flow Rate FiO2 01/21/25 22:17 98.4 64 147/60 (89) 95 98.4 01/21/25 21:30 22 01/21/25 13:30 Room Air* 0 21 General Appeara: Well developed, Well nourished, Normal Appearance Head Exam: Normal inspection Eye Exam: bilateral eye Normal inspection, bilateral eye PERRL, bilateral eye EOMI Ear Exam: bilateral ear Auricle normal, bilateral ear Canal normal Nasal Exam: Normal inspection Mouth: Normal Inspection Pulmonary/Respiratory: Normal inspection, Normal breath sounds, Chest non- tender, Lungs clear Cardiovascular/Chest: Normal inspection, Regular rate, Normal Rhythm Peripheral Pulses: 2+ dorsalis pedis (R), 2+ dorsalis pedis (L), 2+ Radial (R), 2+ Radial (L) Abdominal Exam: Normal bowel sounds, Soft, No tenderness Abdominal Pain Onset Location: Suprapubic ( catheter) Foot: bilateral foot other (bilateral foot drop) 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 Exam: Normal hearing, Normal speech, PERRL Neuro/Mental St: Alert, Oriented Appearance: Appropriate appearance, Appropriate insight Eye contact/ Speech: Cooperative, Good eye contact, Normal speech Thoughts/Psych: Normal thought pattern Skin Exam: Normal inspection, Normal color, Warm/dry SEPSIS Sepsis Screen Date sepsis recognized/suspect: Jan 21, 2025 Time Sepsis recognized/suspect: 1329 Recent Procedure: No On Antibiotic Therapy: No Respiratory Rate >20: No Heart Rate >90: No Temp<36 C (96.8 F) or >38.3 C: No SBP <90 or MAP <65 mmHG: No New Acute Mental Status Change: No Is the patient on CPAP, BIPAP,: No Physician Orders Admit (01/21/25 16:54) Code Status (01/21/25 16:54) Sodium Chloride 0.9% (01/21/25 17:00) Oxygen Per Hour (01/21/25 16:54) Hydrocodone-Acet 5/325mg Tab ([place] 5/32 (01/21/25 17:00) Ondansetron Hcl (Zofran) (01/21/25 17:00) Complete Blood Count (01/22/25 04:00) Comprehensive Metabolic Panel (01/22/25 04:00) Pt Request For Service (01/21/25 16:54) Acetaminophen Tablet (Tylenol Tablet) (01/21/25 17:00) Morphine Sulfate Injection (01/21/25 17:00) Enoxaparin Sodium (Lovenox) (01/21/25 17:00) Nitroglycerin Sublingual (Ntrostat Subli (01/21/25 17:00) Morphine Sulfate Injection (01/21/25 17:00) Stat Ekg For Chest Pain (01/21/25 16:54) Notify Md Of Changes From Base (01/21/25 16:54) Communications Technologist For 24 Hours (01/21/25 16:54) Emergency Dysrhythmia Protocol (01/21/25 16:54) Rhythm Strips Once Every Shift (01/21/25 16:54) Oxygen By Nasal Cannula (01/21/25 16:54) Methylprednisolone Sod Succ (Solu Medrol (01/21/25 22:00) Famotidine Injection (Pepcid Injection) (01/21/25 22:00) Diphenhdramine Injection (Benadryl Injec (01/21/25 17:00) Communication Order (01/21/25 16:54) Transfer Orders (01/21/25 19:13) *Consult / (01/21/25 19:29) Mechanical Soft Diet (01/22/25 Breakfast) [place] Screen (01/21/25 21:38) Glucose Blood (Accu-Chek Comfort Curve T (01/22/25 07:00) Insulin R (Human) (Insulin R) (01/22/25 07:00) Dextrose 50% Syringe (01/21/25 23:00) Strict Aspiration Precautions (01/21/25 22:55) Levothyroxine Tablet (Synthroid Tablet) (01/22/25 10:00) Tramadol Hcl (Ultram) (01/22/25 06:00) (Nf) Gabapentin (01/22/25 06:00) (Nf) Simvastatin (01/22/25 10:00) Vital Signs Date Time Temp Pulse Resp B/P (MAP) Pulse Ox O2 Delivery O2 Flow Rate FiO2 01/21/25 22:17 98.4 64 147/60 (89) 95 98.4 01/21/25 21:30 83 22 141/81 (101) 95 01/21/25 21:00 98.4 86 23 164/78 (106) 96 98.4 01/21/25 20:20 68 01/21/25 19:30 68 14 136/57 (83) 98 01/21/25 18:30 81 14 152/81 (104) 97 01/21/25 17:30 67 13 164/56 (92) 98 01/21/25 15:30 60 12 146/63 (90) 98 Laboratory Tests Test 01/21/25 13:05 White Blood Count 8.8 10^3/uL (4.4-10.8) Medications Medications Dose Ordered Sig/Daniel Route Start Time Stop Time Status Last Admin Dose Admin Acetaminophen/ Hydrocodone Bitart 1 tab Q4HP PRN PO 01/21/25 17:00 01/21/25 22:41 1 TAB Dexamethasone Sodium Phosphate 10 mg ONCE ONCE IV 01/21/25 12:30 01/21/25 12:31 DC 01/21/25 13:03 10 MG Famotidine 20 mg Q12HR IV 01/21/25 22:00 01/21/25 22:04 20 MG Methylprednisolone Sodium Succinate 40 mg Q8HR IV 01/21/25 22:00 01/21/25 22:04 40 MG Sodium Chloride 1,000 ml @ 60 mls/hr [id number] IV 01/21/25 17:00 01/21/25 18:36 60 MLS/HR Wounds chronic sacral decubitus ulcer Labs/Xrays Labs Test 01/21/25 22:15 01/21/25 13:05 Range/Units POC Glucose 260 H 70-106 mg/dl White Blood Count 8.8 4.4-10.8 10^3/uL Red Blood Count 4.22 4.0-5.20 10^6/uL Hemoglobin 11.4 L 12.2-16.2 g/dL Hematocrit 34.4 L 36.0-46.0 % Mean Corpuscular Volume 81.7 80.0-100.0 fL Mean Corpuscular Hemoglobin 27.0 L 28.0-32.0 pg Mean Corpuscular Hemoglobin Concent 33.0 32.0-36.0 g/dL Red Cell Distribution Width 17.2 H 11.8-14.3 % Platelet Count 302 140-450 10^3/uL Mean Platelet Volume 9.5 6.9-10.8 fL Neutrophils (%) (Auto) 91.2 H 37.0-80.0 % Lymphocytes (%) (Auto) 7.3 L 10.0-50.0 % Monocytes (%) (Auto) 0.9 0.0-12.0 % Eosinophils (%) (Auto) 0.4 0.0-7.0 % Basophils (%) (Auto) 0.2 0.0-2.0 % Neutrophils # (Auto) 8.1 1.6-8.6 10 ^3/uL Lymphocytes # (Auto) 0.6 0.4-5.4 10 ^3/uL Monocytes # (Auto) 0.1 0-1.3 10 ^3/uL Eosinophils # (Auto) 0 0-0.8 10 ^3/uL Basophils # (Auto) 0 0-0.2 10 ^3/uL Nucleated Red Blood Cells 0.0 % Sodium Level 140 136-145 mmol/L Potassium Level 4.3 3.5-5.1 mmol/L Chloride Level 102 98-107 mmol/L Carbon Dioxide Level 29 20-31 mmol/L Anion Gap 9 5-15 Blood Urea Nitrogen 19 9-23 mg/dL Creatinine 0.57 0.550-1.02 mg/dL Glomerular Filtration Rate Calc 94 >90 mL/min BUN/Creatinine Ratio 33.3 H 10.0-20.0 Serum Glucose 136 H 74-106 mg/dL Calcium Level 9.1 8.7-10.4 mg/dL Assessment/Plan Problem List: (1) Angioedema Plan This is a 79 yo female with known history of DM2, HTN, HLD who presents to the hospital with throat and tongue swelling. Patient found to have 1. Acute angioedema 2. DM2 3. Hypertension 4. Hyperlipidemia 5. Paraplegia 6. Chronic decubitus sacral ulcer 7. Suprapubic catheter Plan Admit [facility] Pulmonology consultation Rrology consultation IV steroids IV Pepcid Benadryl IV Aspiration precautions Reconcile and continue home medication Glucose monitoring ac & hs coverage with insulin ss Urinalysis Antihypertensive as needed for optimal blood pressure management Discussed all above with patient who verbalizes agreement and understanding of care plan. All questions were answered. Discussed care plan with patient nurse Henny RN. Discussed assessment and care plan with admitting/supervising MD. Plan discussed with: Patient, Other Code Visit Code Visit Total Time (mins): 45 ANTONINA MICHAUD Jan 21, 2025 23:06 THIAGO SLOAN MD Jan 22, 2025 16:06
[2025-01-22] VITALS (33 sets, daily range): BP systolic 129–185; BP diastolic 52–85; PULSE 54–89; RESP 8–21; TEMP 97.7–98.4; O2SAT 94–100
[2025-01-22] MEDS: GABAPENTIN 300 MG CAP PO SCH (05:51)
[2025-01-22 06:02] LABS: Hematocrit 33.5 % (36.0-46.0); Hemoglobin 11.0 g/dL (12.2-16.2); Mean Corpuscular Hemoglobin 26.6 pg (28.0-32.0); Mean Corpuscular Volume 81.1 fL (80.0-100.0); Nucleated Red Blood Cells % 0.0 %
[2025-01-22 06:21] LABS: Alanine Aminotransferase 25 U/L (7-40); Albumin 3.6 g/dL (3.2-4.8); Alkaline Phosphatase 102 U/L (46-116); Anion Gap 8 (5-15); BUN/Creatinine Ratio 30.2 (10.0-20.0); Blood Urea Nitrogen 19 mg/dL (9-23); Calcium 8.9 mg/dL (8.7-10.4); Carbon Dioxide 28 mmol/L (20-31); Chloride 103 mmol/L (98-107); Potassium 4.5 mmol/L (3.5-5.1); Sodium 139 mmol/L (136-145); Total Protein 6.2 g/dL (5.7-8.2)
[2025-01-22 06:23] LABS: Bilirubin, Total 0.2 mg/dL (0.2-1.0); Glucose 213 mg/dL (74-106)
[2025-01-22] MEDS: InsuLIN REG 1unit/0.01ml Soln (100units/ml) SC SCH (06:37)
[2025-01-22] MEDS: ACCU-CHEK COMFORT CURVE STRIP VI SCH (06:37)
[2025-01-22] MEDS: LEVOTHYROXINE SODIUM 88 MCG TAB PO SCH (08:09)
[2025-01-22] MEDS: hydrALAZINE HCL 20 MG/ML VL IV PRN (08:10)
--- NOTE | 2025-01-22 12:17 | DVHINCON2 ---
Date of service: Jan 21, [address] sloan Reason for Consultation Angioedema History of Present Illness HPI The patient is a 79-year-old lady with a history of hypertension usually on losartan who presented with the discomfort in her throat: the patient woke up and felt like her throat was closing up. She has a similar episode a week ago and improved with Benadryl. She denies history of smoking. No recent changes in medications. Patient is admitted for observation Home Meds Active Scripts Amoxicillin & Pot Clavulanate (AUGMENTIN TABLET) 875 Mg Tb, 875 MG PO BID for 10 Days, #20 TAB Prov:THIAGO SLOAN MD 10/21/24 Reported Medications Glipizide (Glipizide) 5 Mg Tab, 1 TAB PO BID 10/18/24 Levothyroxine Sodium (Levothyroxine Sodium) 88 Mcg Tab, 1 TAB PO DAILY, #30 TAB 5 Refills 10/18/24 Magnesium Oxide (MAGNESIUM OXIDE) 400 Mg Tab, 400 MG PO HS, TAB 10/18/24 Tramadol Hcl (Tramadol Hcl) 50 Mg Tab, 50 MG PO TID, TAB 10/18/24 Pantoprazole Sodium Sesquihydr (Pantoprazole Sodium) 40 Mg Tab, 1 TAB PO DAILY 10/18/24 Simvastatin (Simvastatin) 40 Mg Tab, 1 TAB PO 10/18/24 Metformin Hydrochloride (Metformin Hcl) 500 Mg Tab, 1 TAB PO BID 10/18/24 Gabapentin (Gabapentin) 600 Mg Tab, 1 TAB PO TID 10/18/24 Oxycodone W/ Acetaminophen (Percocet 5/325MG) 1 Tab Tb, 1 TAB PO Q4HPRN PRN for PAIN SCALE 1 THRU 6, #60 TAB 07/24/19 Zinc Sulfate (Zinc Sulfate) 220 Mg Cap, 50 MG PO DAILY for 30 Days, MG 07/24/19 Ascorbic Acid (Vitamin C) 1,000 Mg Tab, 1000 MG PO, TAB 07/24/19 Cyanocobalamin (B12) 1,000 Mcg Tab, 500 MCG PO DAILY, TAB 07/24/19 Cranberry Extract (CRANBERRY) 600 Mg Tab, 600 MG OR DAILY, TAB 07/24/19 Cholecalciferol (VITAMIN D3) 2,000 Unit Tab, 1000 UNIT OR, TAB 07/24/19 [place]-3 Fatty Acids ([place] 3 500 500 mg) 1 Cap Cap, 2 CAP PO DAILY, CAP 07/24/19 Biotin (Vitamin H) (Biotin Maximum) 10,000 Mcg Tab, 14768 MCG PO DAILY, TAB 07/24/19 Cyclobenzaprine Hcl (Cyclobenzaprine Hcl) 10 Mg Tab, 10 MG PO TID, TAB 07/24/19 Simvastatin (Simvastatin) 20 Mg Tab, 20 MG OR DAILY 02/19/10 Amitriptyline Hcl (Amitriptyline Hcl) 50 Mg Tab, 50 MG OR HS 02/19/10 Quinapril-Hydrochlorothiazide (Quinapril/Hydrochlorothia) 1 Tab Tab, 2 TAB OR DAILY 02/19/10 [[place]leye] No Conflict Check 02/18/10 Past Medical History Cardiac: HTN Pulmonary: No pertinent Hx Central Nervous System: No pertinent Hx GI: No pertinent Hx Hemotology/Oncology: No pertinent Hx Hepatobiliary: No pertinent Hx Psychiatric: No pertinent Hx Musculoskeletal: No pertinent Hx Rheumotologic: No pertinent Hx Infectious Disease: No peritnent Hx ENT: No pertinent Hx Renal/: No pertinent Hx Endocrine: No pertinent Hx Dermatology: No pertinent Hx Others paraplegia x 15 years ago, suprapubic catheter, stage IV sacral decubitus ulcer Past Surgical History: No pertinent Hx Family History: No pertinent Hx Patient Family History: Cardiovascular disease G8 FATHER Diabetes mellitus G8 MOTHER FH: myocardial infarction G8 MOTHER G8 FATHER Review of Systems Constitutional: No symptom reported Ears, Nose, & Throat: No symptom reported Eyes: No symptom reported Pulmonary/Respiratory: Dyspnea Cardiovascular: No symptom reported Gastrointestinal: No symptom reported Genitourinary: No symptom reported Musculoskeletal: No symptom reported Skin: No symptom reported Psychiatric: No symptom reported Endocrine: No symptom reported Hemotologic/Lymphatic: No symptom reported H&P Exam Vital Signs Vital Signs Date Time Temp Pulse Resp B/P (MAP) Pulse Ox O2 Delivery O2 Flow Rate FiO2 01/22/25 09:30 73 12 160/68 (98) 99 01/22/25 08:00 Room Air* 0 21 01/22/25 08:00 97.7 97.7 General Appeara: Well developed, Well nourished Head Exam: Normal inspection Neck Exam: Normal inspection Eye Exam: bilateral eye Normal inspection, bilateral eye PERRL Ear Exam: bilateral ear Auricle normal, bilateral ear Canal normal Nasal Exam: Normal inspection Pulmonary/Respiratory: Normal inspection, Normal breath sounds, Chest non- tender Cardiovascular/Chest: Normal inspection Peripheral Pulses: 4+ carotid (R), 4+ carotid (L) Abdominal Exam: Normal bowel sounds Labs/Xrays Labs Test 01/22/25 11:55 01/22/25 05:34 Range/Units POC Glucose 177 H 70-106 mg/dl White Blood Count 6.9 4.4-10.8 10^3/uL Red Blood Count 4.13 4.0-5.20 10^6/uL Hemoglobin 11.0 L 12.2-16.2 g/dL Hematocrit 33.5 L 36.0-46.0 % Mean Corpuscular Volume 81.1 80.0-100.0 fL Mean Corpuscular Hemoglobin 26.6 L 28.0-32.0 pg Mean Corpuscular Hemoglobin Concent 32.8 32.0-36.0 g/dL Red Cell Distribution Width 17.2 H 11.8-14.3 % Platelet Count 292 140-450 10^3/uL Mean Platelet Volume 9.3 6.9-10.8 fL Neutrophils (%) (Auto) 84.4 H 37.0-80.0 % Lymphocytes (%) (Auto) 12.6 10.0-50.0 % Monocytes (%) (Auto) 2.9 0.0-12.0 % Eosinophils (%) (Auto) 0.0 0.0-7.0 % Basophils (%) (Auto) 0.1 0.0-2.0 % Neutrophils # (Auto) 5.8 1.6-8.6 10 ^3/uL Lymphocytes # (Auto) 0.9 0.4-5.4 10 ^3/uL Monocytes # (Auto) 0.2 0-1.3 10 ^3/uL Eosinophils # (Auto) 0 0-0.8 10 ^3/uL Basophils # (Auto) 0 0-0.2 10 ^3/uL Nucleated Red Blood Cells 0.0 % Sodium Level 139 136-145 mmol/L Potassium Level 4.5 3.5-5.1 mmol/L Chloride Level 103 98-107 mmol/L Carbon Dioxide Level 28 20-31 mmol/L Anion Gap 8 5-15 Blood Urea Nitrogen 19 9-23 mg/dL Creatinine 0.63 0.550-1.02 mg/dL Glomerular Filtration Rate Calc 91 >90 mL/min BUN/Creatinine Ratio 30.2 H 10.0-20.0 Serum Glucose 213 H 74-106 mg/dL Calcium Level 8.9 8.7-10.4 mg/dL Total Bilirubin 0.2 0.2-1.0 mg/dL Aspartate Amino Transferase (AST) 38 13-40 U/L Alanine Aminotransferase (ALT) 25 7-40 U/L Alkaline Phosphatase 102 46-116 U/L Total Protein 6.2 5.7-8.2 g/dL Albumin 3.6 3.2-4.8 g/dL Assessment/Plan Plan Angioedema Dyspnea Hypertension Patient is seen and examined CT of the neck reviewed Moderate to severe diffuse narrowing of the oropharynx. Findings could represent angioedema. Clinical correlation advised. Management Plan Steroid/Benadryl Pepcid Oxygen as needed Observed closely Plan discussed with: Patient NEELA WEBBER MD Jan 22, 2025 12:17
--- NOTE | 2025-01-22 12:17 | DVHPN2 ---
Progress Note - Dictate Date Seen: Jan 22, 2025 Has the PT tested + for MRSA If YES, has PT been informed?: No Medical Necessity Reason Pt with a Central, PICC or Fol: No vital signs Vital Sign Date Time Temp Pulse Resp B/P (MAP) Pulse Ox O2 Delivery O2 Flow Rate FiO2 01/22/25 09:30 73 12 160/68 (98) 99 01/22/25 08:00 Room Air* 0 21 01/22/25 08:00 97.7 97.7 Total Intake and Output 01/21/25 01/21/25 01/22/25 15:00 23:00 07:00 Intake Total 180 ml 830 ml Output Total 20 ml Balance 180 ml 810 ml medications Current Medications Medications Dose Ordered Sig/Daniel Route Start Time Stop Time Status Last Admin Dose Admin Sodium Chloride 1,000 ml @ 60 mls/hr [id number] IV 01/21/25 17:00 01/22/25 09:51 60 MLS/HR Ondansetron HCl 4 mg Q4HP PRN IV 01/21/25 17:00 Acetaminophen 650 mg Q6HP PRN PO 01/21/25 17:00 Morphine Sulfate 2 mg Q4HPRN PRN IV 01/21/25 17:00 Enoxaparin Sodium 40 mg DAILY SC 01/21/25 17:00 01/22/25 08:10 40 MG Nitroglycerin 0.4 mg Q5MINP PRN SL 01/21/25 17:00 Morphine Sulfate 2 mg Q30M PRN IV 01/21/25 17:00 Methylprednisolone Sodium Succinate 40 mg Q8HR IV 01/21/25 22:00 01/22/25 05:52 40 MG Famotidine 20 mg Q12HR IV 01/21/25 22:00 01/22/25 08:10 20 MG Diphenhydramine HCl 25 mg Q4HP PRN IV 01/21/25 17:00 Diagnostic Test (Pha) 1 strip ACHS 01/22/25 07:00 01/22/25 11:30 1 STRIP Insulin Human Regular ACHS SC 01/22/25 07:00 01/22/25 12:03 3 UNITS Dextrose 50 ml UD PRN IV 01/21/25 23:00 Levothyroxine Sodium 88 mcg DAILY PO 01/22/25 10:00 01/22/25 08:09 88 MCG Tramadol HCl 50 mg TID PO 01/22/25 06:00 01/22/25 05:51 50 MG Gabapentin 600 mg TID PO 01/22/25 06:00 01/22/25 05:51 600 MG Atorvastatin Calcium 10 mg HS PO 01/22/25 22:00 Hydralazine HCl 10 mg Q6HP PRN IV 01/22/25 07:00 01/22/25 08:10 10 MG Clonidine HCl 0.1 mg TIDP PRN PO 01/22/25 10:45 laboratory and microbiology Laboratory Tests 01/22/25 05:34 Test 01/22/25 05:34 Range/Units Serum Glucose 213 H 74-106 mg/dL Assessment/Plan Angioedema Patient is seen and examined Currently at baseline From pulmonary standpoint okay to discharge Recommend 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
[2025-01-22] MEDS ORDERED: PRED20TA2 PO (16:08)
[2025-01-22] MEDS ORDERED: FAMO20TA10 PO (16:08)
--- NOTE | 2025-01-22 16:12 | DVHDS2 ---
Discharge Summary Date of Admission Jan 21, 2025 at 16:54 Date of Discharge: Jan 22, 2025 Labs/Diagnostic Data: Laboratory Results Test 01/22/25 11:55 01/22/25 05:34 POC Glucose 177 mg/dl (70-106) White Blood Count 6.9 10^3/uL (4.4-10.8) Red Blood Count 4.13 10^6/uL (4.0-5.20) Hemoglobin 11.0 g/dL (12.2-16.2) Hematocrit 33.5 % (36.0-46.0) Mean Corpuscular Volume 81.1 fL (80.0-100.0) Mean Corpuscular Hemoglobin 26.6 pg (28.0-32.0) Mean Corpuscular Hemoglobin Concent 32.8 g/dL (32.0-36.0) Red Cell Distribution Width 17.2 % (11.8-14.3) Platelet Count 292 10^3/uL (140-450) Mean Platelet Volume 9.3 fL (6.9-10.8) Neutrophils (%) (Auto) 84.4 % (37.0-80.0) Lymphocytes (%) (Auto) 12.6 % (10.0-50.0) Monocytes (%) (Auto) 2.9 % (0.0-12.0) Eosinophils (%) (Auto) 0.0 % (0.0-7.0) Basophils (%) (Auto) 0.1 % (0.0-2.0) Neutrophils # (Auto) 5.8 10 ^3/uL (1.6-8.6) Lymphocytes # (Auto) 0.9 10 ^3/uL (0.4-5.4) Monocytes # (Auto) 0.2 10 ^3/uL (0-1.3) Eosinophils # (Auto) 0 10 ^3/uL (0-0.8) Basophils # (Auto) 0 10 ^3/uL (0-0.2) Nucleated Red Blood Cells 0.0 % Sodium Level 139 mmol/L (136-145) Potassium Level 4.5 mmol/L (3.5-5.1) Chloride Level 103 mmol/L (98-107) Carbon Dioxide Level 28 mmol/L (20-31) Anion Gap 8 (5-15) Blood Urea Nitrogen 19 mg/dL (9-23) Creatinine 0.63 mg/dL (0.550-1.02) Glomerular Filtration Rate Calc 91 mL/min (>90) BUN/Creatinine Ratio 30.2 (10.0-20.0) Serum Glucose 213 mg/dL (74-106) Calcium Level 8.9 mg/dL (8.7-10.4) Total Bilirubin 0.2 mg/dL (0.2-1.0) Aspartate Amino Transferase (AST) 38 U/L (13-40) Alanine Aminotransferase (ALT) 25 U/L (7-40) Alkaline Phosphatase 102 U/L (46-116) Total Protein 6.2 g/dL (5.7-8.2) Albumin 3.6 g/dL (3.2-4.8) Other Laboratory Tests 01/22/25 05:34 Brief Hx & Hospital Course: 79-year-old female with a known history of diabetes mellitus type 2, hypertension, dyslipidemia, hypothyroidism, status post paraplegia, status post suprapubic catheter, chronic decubitus sacral ulcer initially presented to the hospital with the throat swelling and tongue swelling difficult to speak but denies any respiratory distress. Eventually patient was given IV Solu-Medrol IV antihistamine. She was admitted to [facility] to watch for any respiratory distress. Patient did fairly well pulmonary was consulted as well. Patient is currently tongue swelling improved significantly and she is speaking and she is eating without any difficulty. She will be tapered on prednisone and Pepcid and outpatient follow up with the Rheumatology for workup fall off idiopathic angioedema. Patient denies any new medication or new food or any increased dose of medication Condition at Discharge: Stable Final Diagnosis/Problems List This is a 79 yo female with known history of DM2, HTN, HLD who presents to the hospital with throat and tongue swelling. Patient found to have 1. Acute angioedema idiopathic, resolved 2. DM2 3. Hypertension 4. Hyperlipidemia 5. Paraplegia 6. Chronic decubitus sacral ulcer 7. Suprapubic catheter Discharge Disposition: Home with [facility] Discharge Will this Physician continue t: No Discharge Instruct/Medications Diet: Cardiac 2g Na,low cholest Diet comment: 1999 ADA diet Activity: No Restrictions, As Tolerated Follow Up/Referral: Follow up with the PCP in one week Follow up with the Rheumatology for workup of angioedema as an outpatient. Medications: Prednisone, Pepcid as prescribed. New Medications: Famotidine (Pepcid Tablet) 20 Mg Tb 1 TAB PO BID for 3 Days, #6 TAB 5 Refills Prednisone (Prednisone) 20 Mg Tab 40 MG PO DAILY for 3 Days, #6 MG Continued Medications: [Aleye] () Amitriptyline Hcl (Amitriptyline Hcl) 50 Mg Tab 50 MG OR HS Ascorbic Acid (Vitamin C) 1,000 Mg Tab 1000 MG PO, TAB Biotin (Vitamin H) (Biotin Maximum) 10,000 Mcg Tab 71205 MCG PO DAILY, TAB Cholecalciferol (Vitamin D3) 2,000 Unit Tab 1000 UNIT OR, TAB Cranberry Extract (Cranberry) 600 Mg Tab 600 MG OR DAILY, TAB Cyanocobalamin (B12) 1,000 Mcg Tab 500 MCG PO DAILY, TAB Cyclobenzaprine Hcl (Cyclobenzaprine Hcl) 10 Mg Tab 10 MG PO TID, TAB Gabapentin (Gabapentin) 600 Mg Tab 1 TAB PO TID Glipizide (Glipizide) 5 Mg Tab 1 TAB PO BID Levothyroxine Sodium (Levothyroxine Sodium) 88 Mcg Tab 1 TAB PO DAILY, #30 TAB 5 Refills Magnesium Oxide (Magnesium Oxide) 400 Mg Tab 400 MG PO HS, TAB Metformin Hydrochloride (Metformin Hcl) 500 Mg Tab 1 TAB PO BID Hathaway-3 Fatty Acids (Hathaway 3 500 500 mg) 1 Cap Cap 2 CAP PO DAILY, CAP Oxycodone W/ Acetaminophen (Percocet 5/325MG) 1 Tab Tb 1 TAB PO Q4HPRN PRN for PAIN SCALE 1 THRU 6, #60 TAB Pantoprazole Sodium Sesquihydr (Pantoprazole Sodium) 40 Mg Tab 1 TAB PO DAILY Quinapril-Hydrochlorothiazide (Quinapril/Hydrochlorothia) 1 Tab Tab 2 TAB OR DAILY Simvastatin (Simvastatin) 20 Mg Tab 20 MG OR DAILY Simvastatin (Simvastatin) 40 Mg Tab 1 TAB PO Tramadol Hcl (Tramadol Hcl) 50 Mg Tab 50 MG PO TID, TAB Zinc Sulfate (Zinc Sulfate) 220 Mg Cap 50 MG PO DAILY for 30 Days, MG Discontinued Medications: Amoxicillin & Pot Clavulanate (Augmentin Tablet) 875 Mg Tb 875 MG PO BID for 10 Days, #20 TAB Scheduled Amitriptyline Hcl (Amitriptyline Hcl), 50 MG OR HS, (Reported) Amoxicillin & Pot Clavulanate (Augmentin Tablet), 875 MG PO BID Biotin (Vitamin H) (Biotin Maximum), 10,000 MCG PO DAILY, (Reported) Cranberry Extract (Cranberry), 600 MG OR DAILY, (Reported) Cyanocobalamin (B12), 500 MCG PO DAILY, (Reported) Cyclobenzaprine Hcl (Cyclobenzaprine Hcl), 10 MG PO TID, (Reported) Famotidine (Pepcid Tablet), 1 TAB PO BID Gabapentin (Gabapentin), 1 TAB PO TID, (Reported) Glipizide (Glipizide), 1 TAB PO BID, (Reported) Levothyroxine Sodium (Levothyroxine Sodium), 1 TAB PO DAILY, (Reported) Magnesium Oxide (Magnesium Oxide), 400 MG PO HS, (Reported) Metformin Hydrochloride (Metformin Hcl), 1 TAB PO BID, (Reported) Hathaway-3 Fatty Acids (Hathaway 3 500 500 mg), 2 CAP PO DAILY, (Reported) Pantoprazole Sodium Sesquihydr (Pantoprazole Sodium), 1 TAB PO DAILY, (Reported) Prednisone (Prednisone), 40 MG PO DAILY Quinapril-Hydrochlorothiazide (Quinapril/Hydrochlorothia), 2 TAB OR DAILY, (Reported) Simvastatin (Simvastatin), 20 MG OR DAILY, (Reported) Tramadol Hcl (Tramadol Hcl), 50 MG PO TID, (Reported) Zinc Sulfate (Zinc Sulfate), 50 MG PO DAILY, (Reported) Scheduled PRN Oxycodone W/ Acetaminophen (Percocet 5/325MG), 1 TAB PO Q4HPRN PRN for PAIN SCALE 1 THRU 6, (Reported) Miscellaneous Medications Ascorbic Acid (Vitamin C), 1,000 MG PO, (Reported) Cholecalciferol (Vitamin D3), 1,000 UNIT OR, (Reported) Simvastatin (Simvastatin), 1 TAB PO, (Reported) [Aleye], (Reported) Discharge Statement: "Patient was advised to return to the ER or call 911 if any headaches, dizziness, shortness of breath, chest pain, abdominal pain, bleeding, fevers, or worsening of medical condition. Patient was counseled about treatment plan, medications, possible side effects, patientverbalized understanding. All questions were answered to the best of my ability. This discharge took greater then 30 minutes in planning, reviewing documentation, counseling the patient, and discussing with other team members." ASSESSMENT ASSESSMENT Assessment This is a 79 yo female with known history of DM2, HTN, HLD who presents to the hospital with throat and tongue swelling. Patient found to have 1. Acute angioedema idiopathic, resolved 2. DM2 3. Hypertension 4. Hyperlipidemia 5. Paraplegia 6. Chronic decubitus sacral ulcer 7. Suprapubic catheter Date of Service: Jan 22, 2025 Billing Provider: THIAGO SLOAN MD Common Visit Codes: NOT BILLABLE THIAGO SLOAN MD Jan 22, 2025 16:12
[2025-01-22] MEDS ORDERED: MUPI2OIN2 EXT (17:25)
[2025-01-22] MEDS ORDERED: ATORVASTATIN 20 MG TAB PO SCH (22:00)
== END 2025-01-22 17:50 | disposition home health service (06) | DRG 915 ==
LOC: ER 12:15 → OVERFLOW 16:54 → DOU IN ICU 20:51 → ICU CENTRL 20:55
PROVIDERS: ADMIT Internal Medicine; ATTEND Internal Medicine
DX: T78.3XXA Angioneurotic edema, initial encounter (principal); L89.154 Pressure ulcer of sacral region, stage 4; G82.20 Paraplegia, unspecified; E11.622 Type 2 diabetes mellitus with other skin ulcer; E78.5 Hyperlipidemia, unspecified; I10 Essential (primary) hypertension; Y82.8 Other medical devices associated with adverse incidents; E03.9 Hypothyroidism, unspecified; Z79.84 Long term (current) use of oral hypoglycemic drugs; Z79.899 Other long term (current) drug therapy; Z82.49 Family history of ischemic heart disease and other diseases of the circulatory system; Z83.3 Family history of diabetes mellitus; Z88.1 Allergy status to other antibiotic agents; Y92.89 Other specified places as the place of occurrence of the external cause
CPT/HCPCS: 36415; 70490; 80048; 80053; 82962; 85025; 87077; 87081; 87186; 87205; 96372; 96374; 96375; G0378; J1100; J3490